=== PATIENT | male | born 1940 | race Caucasian/White ===

== ENCOUNTER → 2023-07-20 09:24 | Outpatient (REF) | payer MEDICARE, OTHER, SELFPAY ==
[2023-07-20 13:58] LABS: ALT (SGPT) 41 U/L (0-50); AST (SGOT) 35 U/L (17-59); Albumin 3.7 g/dl (3.5-5.0); Alkaline Phosphatase 75 U/L (38-126); Blood Urea Nitrogen 34 mg/dl (9-20); Calcium 9.1 mg/dl (8.4-10.2); Carbon Dioxide 34 mmol/L (22-30); Chloride 101 mmol/L (98-107); Glucose 97 mg/dl (70-99); HDL Cholesterol 43 mg/dl; LDL Cholesterol, Calculated 88 mg/dl; Sodium 140 mmol/L (135-145); Total Bilirubin 2.3 mg/dl (0.2-1.3); Total Cholesterol 145 mg/dl (50-199); Total Protein 6.7 g/dl (6.3-8.2); Triglyceride 71 mg/dl (10-149); Very Low Density Lipoprotein 14 mg/dl (0-30); eGFR 39.75
== END ==
LOC: HWLAB 09:24
PROVIDERS: ATTENDING PHYSICIAN Internal Medicine; REFERRING PHYSICIAN Internal Medicine
DX: R73.03 Prediabetes (principal); I10 Essential (primary) hypertension; I25.5 Ischemic cardiomyopathy; E78.5 Hyperlipidemia, unspecified; Z79.01 Long term (current) use of anticoagulants
CPT/HCPCS: 36415; 80053; 80061; 83036; 84443

== ENCOUNTER → 2023-10-08 06:18 | Day surgery (SDC) | payer MEDICARE, OTHER, SELFPAY ==
[2023-10-08 06:19] VITALS: BP 139/73
[2023-10-08] MEDS: ALCAINE 0.5% EYE DROPS 1 DROP OPHTH (06:28)
[2023-10-08] MEDS: MYDRIACYL 1 DROP OPHTH (06:29)
[2023-10-08] MEDS: NEO-SYNEPHRINE 2.5% OPH SOL. 1 DROP OPHTH (06:29)
[2023-10-08] MEDS: PRED FORTE 1% EYE DROPS 1 DROP OPHTH (06:29)
[2023-10-08] MEDS: POLYTRIM OPHTHALMIC SOLUTION 1 DROP OPHTH (06:29)
[2023-10-08] MEDS: ACUVAIL 10 DROPS OPHTH (06:29)
[2023-10-08] MEDS: CYCLOGYL 1% EYE DROPS 1 DROP OPHTH (06:29)
[2023-10-08] MEDS: NORMOSOL-R 1000 IV (06:46)
[2023-10-08] MEDS: AKTEN OPHTHALMIC GEL 1 ML OPHTH (07:14)
[2023-10-08 07:50] VITALS: BP 119/67
[2023-10-08 08:04] VITALS: BP 128/64
[2023-10-08 08:05] VITALS: BP 128/64
[2023-10-08 08:11] VITALS: BP 129/63
== END ==
LOC: SDS 06:18
PROVIDERS: ATTENDING PHYSICIAN Ophthalmology
DX: H25.12 Age-related nuclear cataract, left eye (principal)
CPT/HCPCS: 66984; V2632

== ENCOUNTER 2023-10-27 10:57 | Emergency (ER) | payer MEDICARE, OTHER, SELFPAY ==
[2023-10-27] VITALS (7 sets, daily range): BP systolic 110–150; BP diastolic 63–84
--- NOTE | 2023-10-27 11:56 | ED.GENMED ---
History of Present Illness
General
Chief Complaint: Swelling
Source: patient and spouse
Time Seen by Provider: 10/27/23 11:29
Travel History
Have you had any contact with someone who has COVID-19?: No
Do you have any symptoms of coronavirus? Fever > 100 degrees, chills, cough, shortness of breath, sore throat, loss of taste or smell, muscle aches, or headache?: No
History of Present Illness
History of Present Illness:
83-year-old male brought to the emergency room by his for evaluation of acute swelling, fatigue increased shortness of breath. Patient does have a history of congestive heart failure. He is followed by Dr. Li. Patient has been compliant
with his medications. He denies chest pain. No recent fever.
Past History
Past History
ED Past Medical History: Arrthythmia (Atrial fibrillation, sick sinus syndrome, ventricular dysrhythmia), CAD, CHF, CVA (Hemorrhagic stroke), HTN, Hypercholesterolemia, Hypothyroidism and Other (Pneumonia, hemorrhagic stroke, coronary artery
disease,)
ED Past Surgical History: Cardiac (Dual chamber Pacemaker/AICD) and Cholecystectomy
Social History
Tobacco: Non-smoker
Alcohol: None
Personal:
Living: with family
Employment: Retired
Family History
Family History: Other (Noncontributory)
Phy Exam
Physical Exam
Physical Exam:
General: Awake, Alert, Oriented X3. No acute distress., Appears chronically ill, pale complexion
Vitals: unremarkable
Head: Atraumatic
Eyes: Pupils equal, EOMI
Throat: Airway intact, no exudates
Neck: Trachea midline
Lungs: Clear and equal b/l
Heart: Regular rate, no murmurs
Abd: Soft, Nontender, No pulsatile mass
Neuro: Nonfocal
Skin: Warm, dry, no rash
Extremities: pulses equal b/l, 2+ edema
Scores
Heart Failure Risk
Heart Failure Risk Score: Yes
History of Stroke or TIA: Yes
History of intubation for respiratory distress: No
Heart rate on ED arrival >/= 110: No
SaO2 <90% on arrival on room air: No
HR >/=110 during 3min walk test (or too ill to perform test): No
ECG has acute ischemic changes: No
Urea >/=12mmol/L (BUN 33.6mg/dL): No
Serum CO2>/=35mmol/L: No
Troponin I or T elevated to MT Level (0.4mg/dL): No
NT-proBNP >/=5,000ng/L (5,000pg/ml): No
HF Risk Score: 1
Admission Status: MEDIUM RISK 5.1% Consider observation or discharge to home with homecare & f/u visit to PCP/Senior Data Architect, or SNF for treatment
Course
Orders/Labs/Results
Orders:
Orders
10/27/23 11:56
Electrocardiogram (*1) Stat
Reason for Study: Other
Other Reason for Exam: chest pain
Cardiac Monitoring- Treatment ONCE
EKG- Treatment ONCE
CR Chest - 2 Views Urgent
Comment:
Reason For Exam: edema, sob
10/27/23 12:05
Basic Metabolic Panel Urgent
Complete Blood Count/With Diff Urgent
Magnesium Urgent
NT-proBNP Urgent
Troponin I Urgent
10/27/23 12:55
Urinalysis Reflex To Culture Urgent
Date Specimen was Collected: 10/27/23
Time Specimen was Collected: 12:54
10/27/23 14:33
Furosemide [Lasix] 80 mg IV NOW STA
Abnormal Lab Results
10/27/23
12:05
RBC 3.98 L 10^6/uL
(4.70-6.10)
Hgb 12.6 L g/dL
(13.0-18.0)
Hct 37.7 L %
(39.0-52.0)
MCV 94.7 H fL
(80.0-94.0)
MCH 31.7 H pg
(27.0-31.0)
Monocytes % 10.9 H %
(1.7-9.3)
BUN 28 H mg/dl
(9-20)
Creatinine 1.8 H mg/dL
(0.7-1.3)
Magnesium 2.5 H mg/dl
(1.6-2.3)
10/27/23 12:05
10/27/23 12:05
Vital Signs
Initial and Last Documented VS:
Initial Vital Signs
Temp Pulse Resp BP Pulse Ox
98.0 F 51 16 124/71 98
10/27/23 11:12 10/27/23 11:12 10/27/23 11:12 10/27/23 11:12 10/27/23 11:12
Last Documented Vital Signs
Temp Pulse Resp BP Pulse Ox
97.8 F 46 12 134/84 96
10/27/23 15:00 10/27/23 16:15 10/27/23 16:15 10/27/23 16:00 10/27/23 16:15
MDM/Problems Addressed
Differential Diagnosis Includes:
CHF, renal failure, hypokalemia, UTI
MDM/Problems Addressed:
Patient presents with increased edema and generalized weakness. Labs here show normal white count, essentially normal hemoglobin, renal function which is at baseline for him. Physical exam patient seems a bit fluid overloaded. Will give him a
dose of IV Lasix but he seems stable for discharge.
Chronic conditions affecting care: HTN and Other (chf)
*Radiology
Radiology exam reviewed: radiology read reviewed
*Pulse Oximetry
Patient hypoxic: no
*EKG
Interpretation: abnormal
Heart Rate: 50
Rhythm: ventricular paced
Ischemia: no ischemia
*Hose Inspector And Patcher Interpretation
Rate: bradycardiac
Heart Rate: 50
Rhythm: ventricular paced
*Critical Care Note
Total Time (30-74mins, 75-104mins- exclusive of procedures): Not Applicable
ED Attending Note
-
Portions of this chart may have been created with voice recognition software.� Occasional wrong word or��sound alike� substitutions may have occurred due to the inherent limitations of voice recognition software.
Discharge Plan
Departure
Patient Disposition: Home (Routine Discharge)
Date of Disposition: 10/27/23
Time of Disposition: 14:42
Patient with high blood pressure during this ER visit?: No
Condition: Good
Discharge Problem:
CHF (congestive heart failure)
Instructions: *CBC Heart Failure Instructions
Prescriptions:
No Action
levothyroxine 75 MCG tablet
75 mcg PO DAILY
atorvastatin 40 MG tablet
40 mg PO DAILY
cyanocobalamin (vitamin B-12) 1,000 MCG tablet
1,000 mcg PO DAILY
Patient Comments:
being held for surgery on 10/28
lisinopril 40 MG tablet
40 mg PO DAILY
cholecalciferol (vitamin D3) 1,000 UNITS tablet
1,000 units PO DAILY
Patient Comments:
being held for surgery 10/28
Eliquis 5 MG tablet
2.5 mg PO BID@0800,1800
isosorbide mononitrate 60 MG tablet extended release 24 hr
60 mg PO DAILY Qty: 30 0RF
carvedilol 12.5 MG tablet
25 mg PO BID@0800,1800
potassium chloride 10 MEQ tablet,ER particles/crystals
20 meq PO BID
amiodarone 200 mg Tablet
200 mg PO DAILY
furosemide 40 mg Tablet
40 mg PO DAILY
Rx Instructions:
1600
furosemide 80 MG tablet
80 mg PO DAILY
Rx Instructions:
0800
Referrals:
Naveen Li MD [Active] -
Luiza Campbell MD [Family Provider] -
Interventions
Interventions:
*Risk Screen - Suicide Last Done: 10/27/23 11:45
*General Assessment Last Done: 10/27/23 11:45
*Neglect/Abuse Screening Last Done: 10/27/23 11:45
ED- Fall Risk Assessment Last Done: 10/27/23 13:09
*ED COVID-19 Vaccine History Last Done: 10/27/23 11:12
*Nursing Disposition Last Done: 10/27/23 16:55
ED- Cardiac Assessment Last Done: 10/27/23 11:47
ED- Pulmonary Assessment Last Done: 10/27/23 16:51
ED-Skin Assessment Last Done: 10/27/23 16:51
Discharge Date and Time
Discharge Date/Time: 10/27/23 16:56
Print Language: PASHTO
[2023-10-27 12:34] LABS: % Basophils 1.3 % (0-2); % Eosinophils 2.9 % (0-6); % Immature Granulocytes 0.4 % (0-0.5); % Lymphocytes 23.1 % (20.5-51.1); % Monocytes 10.9 % (1.7-9.3); % Neutrophils 61.4 % (42.2-75.2); Absolute Basophils 0.1 10^3/uL (0-0.2); Absolute Eosinophils 0.2 10^3/uL (0-0.7); Absolute Lymphocytes 1.2 10^3/uL (1.2-3.4); Absolute Monocytes 0.6 10^3/uL (0.1-0.6); Absolute Neutrophils 3.2 10^3/uL (1.4-6.5); Hematocrit 37.7 % (39.0-52.0); Hemoglobin 12.6 g/dL (13.0-18.0); Mean Corp Hgb Conc. 33.4 g/dL (33.0-37.0); Mean Corpuscular Hgb 31.7 pg (27.0-31.0); Mean Corpuscular Volume 94.7 fL (80.0-94.0); Mean Platelet Volume 10.2 fL (7.4-10.4); Nucleated Red Blood Cells % 0 % (-); Platelet Count 146 10^3/uL (130-400); Red Blood Cell Count 3.98 10^6/uL (4.70-6.10); Red Cell Dist. Width 13.6 % (11.5-14.5); White Blood Cell Count 5.2 10^3/uL (4.8-10.8)
[2023-10-27 12:38] LABS: Blood Urea Nitrogen 28 mg/dl (9-20); Carbon Dioxide 30 mmol/L (22-30); Chloride 103 mmol/L (98-107); Estimated Creatinine Clearance 35 ml/min; Glucose 90 mg/dl (70-99); Magnesium 2.5 mg/dl (1.6-2.3); Potassium 4.1 mmol/L (3.5-5.1); Sodium 140 mmol/L (135-145); eGFR 36.89
[2023-10-27 12:50] LABS: Troponin I 0.026 ng/ml
[2023-10-27 13:08] LABS: Urine Albumin Negative (Neg - Trace); Urine Bilirubin Negative (Negative); Urine Character Clear (Clear); Urine Color Yellow; Urine Glucose Negative (Negative); Urine Ketone Negative (Negative); Urine Leukocyte Negative (Negative); Urine Nitrite Negative (Negative); Urine Occult Blood Negative (Negative); Urine Urobilinogen Negative (Neg - 1+)
[2023-10-27 14:31] LABS: NT-proBNP 1950 pg/ml
[2023-10-27] MEDS: LASIX 80 MG IV (14:46)
== END 2023-10-27 16:56 | disposition home or self-care (01) ==
LOC: EMR 10:57
PROVIDERS: EMERGENCY PHYSICIAN Emergency Medicine; FAMILY PHYSICIAN Internal Medicine; REFERRING PHYSICIAN Internal Medicine
DX: I50.9 Heart failure, unspecified (principal); R53.1 Weakness; R53.83 Other fatigue; R06.02 Shortness of breath; R60.0 Localized edema; I48.91 Unspecified atrial fibrillation; I49.5 Sick sinus syndrome; E03.9 Hypothyroidism, unspecified; E78.00 Pure hypercholesterolemia, unspecified; I11.0 Hypertensive heart disease with heart failure; I25.10 Atherosclerotic heart disease of native coronary artery without angina pectoris; Z95.810 Presence of automatic (implantable) cardiac defibrillator; Z86.73 Personal history of transient ischemic attack (TIA), and cerebral infarction without residual deficits; Z87.01 Personal history of pneumonia (recurrent); Z90.49 Acquired absence of other specified parts of digestive tract; Z88.2 Allergy status to sulfonamides; Z88.8 Allergy status to other drugs, medicaments and biological substances
CPT/HCPCS: 99285; 96374; 93289; 71046; 80048; 81003; 83735; 83880; 84484; 85025; 93005

== ENCOUNTER 2023-10-29 06:23 | Day surgery (SDC) | payer MEDICARE, OTHER, SELFPAY ==
[2023-10-29 08:20] VITALS: BP 119/75
[2023-10-29] MEDS: ALCAINE 0.5% EYE DROPS 2 DROP OPHTH (08:43)
[2023-10-29] MEDS: PRED FORTE 1% EYE DROPS 1 DROP OPHTH (08:43)
[2023-10-29] MEDS: NEO-SYNEPHRINE 2.5% OPH SOL. 1 DROP OPHTH (08:44)
[2023-10-29] MEDS: POLYTRIM OPHTHALMIC SOLUTION 1 DROP OPHTH (08:44)
[2023-10-29] MEDS: MYDRIACYL 1 DROP OPHTH (08:44)
[2023-10-29] MEDS: CYCLOGYL 1% EYE DROPS 1 DROP OPHTH (08:45)
[2023-10-29] MEDS: ACUVAIL 1 DROPS OPHTH (08:45)
[2023-10-29] MEDS: NORMOSOL-R 1000 IV (08:46)
[2023-10-29] MEDS: AKTEN OPHTHALMIC GEL 1 ML OPHTH (09:38)
[2023-10-29 10:22] VITALS: BP 156/69
[2023-10-29 10:30] VITALS: BP 136/66
[2023-10-29 10:38] VITALS: BP 148/72
== END 2023-10-29 10:50 | disposition home or self-care (01) ==
LOC: SDS 06:23
PROVIDERS: ATTENDING PHYSICIAN Ophthalmology
DX: H25.11 Age-related nuclear cataract, right eye (principal)
CPT/HCPCS: 66984

== ENCOUNTER → 2023-11-12 09:30 | Outpatient (REF) | payer MEDICARE, OTHER, SELFPAY ==
[2023-11-12 12:40] LABS: ALT (SGPT) 29 U/L (0-50); AST (SGOT) 28 U/L (17-59); Albumin 4.2 g/dl (3.5-5.0); Alkaline Phosphatase 73 U/L (38-126); Blood Urea Nitrogen 28 mg/dl (9-20); Calcium 9.1 mg/dl (8.4-10.2); Carbon Dioxide 30 mmol/L (22-30); Chloride 105 mmol/L (98-107); Glucose 92 mg/dl (70-99); HDL Cholesterol 38 mg/dl; LDL Cholesterol, Calculated 77 mg/dl; Potassium 3.7 mmol/L (3.5-5.1); Sodium 144 mmol/L (135-145); Total Bilirubin 2.4 mg/dl (0.2-1.3); Total Cholesterol 130 mg/dl (50-199); Total Protein 6.8 g/dl (6.3-8.2); Triglyceride 77 mg/dl (10-149); Very Low Density Lipoprotein 15 mg/dl (0-30); eGFR 39.51
[2023-11-12 13:02] LABS: TSH Reflex To Free T4 3.51 uIU/ml (0.47-4.68)
[2023-11-12 13:31] LABS: Glycohemoglobin (HgbA1c) 5.8 % (4.0-5.6)
== END ==
LOC: HWLAB 09:30
PROVIDERS: ATTENDING PHYSICIAN Internal Medicine
DX: N18.2 Chronic kidney disease, stage 2 (mild) (principal); E03.9 Hypothyroidism, unspecified; R73.03 Prediabetes; I69.30 Unspecified sequelae of cerebral infarction
CPT/HCPCS: 36415; 80053; 80061; 83036; 84443

== ENCOUNTER → 2024-01-09 14:06 | Outpatient (REF) | payer MEDICARE, OTHER, SELFPAY | LOC: HWRAD 14:06 | PROVIDERS: ATTENDING PHYSICIAN Internal Medicine | DX: R26.9 Unspecified abnormalities of gait and mobility (principal) | CPT/HCPCS: 73502 ==

== ENCOUNTER 2024-01-16 14:03 | Outpatient (RCR) | payer MEDICARE, OTHER, SELFPAY | END 2024-01-16 23:59 | disposition home or self-care (01) | LOC: RPT 14:03 | PROVIDERS: ATTENDING PHYSICIAN Internal Medicine | DX: R26.81 Unsteadiness on feet (principal); Z73.6 Limitation of activities due to disability; R29.6 Repeated falls | CPT/HCPCS: 97110; 97112; 97162; 97530 ==

== ENCOUNTER 2024-02-18 11:50 | Outpatient (RCR) | payer MEDICARE, OTHER, SELFPAY | END 2024-02-18 23:59 | disposition home or self-care (01) | LOC: RPT 11:50 | PROVIDERS: ATTENDING PHYSICIAN Internal Medicine | DX: R26.81 Unsteadiness on feet (principal); R29.6 Repeated falls | CPT/HCPCS: 97110; 97112; 97116; 97530 ==

== ENCOUNTER 2024-03-03 14:53 | Outpatient (RCR) | payer MEDICARE, OTHER, SELFPAY | END 2024-03-10 14:53 | disposition home or self-care (01) | LOC: RPT 14:53 | PROVIDERS: ATTENDING PHYSICIAN Internal Medicine | DX: R26.81 Unsteadiness on feet (principal); Z73.6 Limitation of activities due to disability; R26.2 Difficulty in walking, not elsewhere classified; M62.81 Muscle weakness (generalized); R29.6 Repeated falls | CPT/HCPCS: 97110; 97112; 97116; 97530 ==

== ENCOUNTER 2024-03-10 11:02 | Inpatient (IN) | payer MEDICARE, OTHER, SELFPAY ==
[2024-03-07] VITALS (12 sets, daily range): BP systolic 119–160; BP diastolic 52–97; PULSE 60; O2SAT 93; BMI 29.8
--- NOTE | 2024-03-07 08:18 | ED.GENMED ---
History of Present Illness
General
Chief Complaint: Fall
Source: patient, family and ambulance crew
Exam Limitations: none
Time Seen by Provider: 03/07/24 08:04
Nursing documentation reviewed up to this point in time: agreed with
History of Present Illness
History of Present Illness:
83-year-old male with a past medical history of 'cognitive decline,' prior hemorrhagic stroke status post craniotomy, sleep apnea, CHF, atrial fibrillation on Eliquis, hypothyroidism who presents to the emergency room from home where he lives with
his ; who presents via EMS for evaluation of generalized weakness and confusion, fall today. Patient is very limited as a historian�when asked what is wrong he says 'my is on the way, you can ask her.' He denies any specific pains
although according to EMS he was complaining of some right hip pain to them. Per EMS report patient has had increasing weakness over the past few days culminating in a fall onto his bottom today. Apparently there was no head strike reported. He
is on Eliquis. is en route to the hospital. EMS reports that felt patient was much weaker and slightly more confused than usual.
UPDATE
Patient's is now at bedside: She lives at home with the patient, patient ambulates with a walker. He has baseline cognitive issues since hemorrhagic stroke and has had gradual decline over the past few years. Recently has been dealing with
right hip pain related to arthritis over the past few weeks; has not yet seen a specialist for this. Has had x-ray as an outpatient apparently that was positive for arthritis but negative for fracture. Yesterday patient's noticed that he had
'a bad cold'�she describes runny nose and hacking cough. This morning at around 4 AM patient woke up to go to the bathroom and was very weak and had a minor fall down to his bottom. EMS was called to help him up and they got him to the bathroom
and back into bed. Then at around 7 AM patient again got up to go to the bathroom and could not make it to the bathroom with a walker and once again fell down towards his bottom. There was no head trauma during either fall. EMS was called a
second time and patient was brought into the emergency room. He has been slightly more confused over the past 24 hours according to but does have significant baseline cognitive dysfunction.
Past History
Past History
ED Past Medical History: Arrthythmia (Atrial fibrillation, sick sinus syndrome, ventricular dysrhythmia), CAD, CHF, CVA (Hemorrhagic stroke), HTN, Hypercholesterolemia, Hypothyroidism and Other (Pneumonia, hemorrhagic stroke, coronary artery
disease,)
ED Past Surgical History: Cardiac (Dual chamber Pacemaker/AICD) and Cholecystectomy
Social History
Tobacco: Non-smoker
Alcohol: None
Personal:
Living: with family
Employment: Retired
Family History
Family History: Other (Noncontributory)
Review of Systems
Review of Systems
Unable to obtain full review of systems at this time due to: dementia
All Other Systems: Not applicable
Phy Exam
Physical Exam
Physical Exam:
General: Awake, alert, oriented x2; no acute distress
Head: Normocephalic, atraumatic
Eyes: Conjunctiva normal, pupils equal round and reactive to light bilaterally
Throat: Airway intact, handling secretions
Neck: Trachea midline, no midline cervical spine tenderness, scar in the cervical region from prior surgery
Back: No tenderness in the thoracic or lumbar spine, no signs of trauma to the back or flank
Lungs: Patient has mild tachypnea, pulse ox low normal 91% on room air, no increased work of breathing; he has scattered expiratory wheezing and coughing throughout exam
Heart: Regular rate and rhythm, no murmurs, gallops, or rubs appreciated; left upper chest wall AICD; no rib tenderness
Abd: Soft, non distended, nontender
Neuro: Patient has some right lid ptosis, cranial nerves otherwise intact; speech fluid no dysarthria, motor and sensory function intact in all extremities
Skin: no rash
Extremities: Atraumatic, no reproducible tenderness, moves both upper and lower extremities through full active range of motion without pain, no edema in extremities, equal pulses in all extremities
Scores
Heart Failure Risk
Heart Failure Risk Score: Not Applicable
Heart Score for Chest Pain Patients
STEMI patient?: Not applicable
Withdrawal Assessment of Alcohol
Withdrawal Assessment Completed?: Not applicable
Course
Orders/Labs/Results
Orders:
Orders
03/07/24 08:05
Electrocardiogram (*1) Urgent
Reason for Study: Fatigue / Weakness
EKG- Treatment ONCE
CR Hip - RT w/wo Pel 2-3 Vw* Urgent
Comment:
Reason For Exam: right hip pain s/p fall
Include a pelvis x-ray?: Yes
03/07/24 08:17
CT Head W/o Iv Contrast Urgent
Comment:
Reason For Exam: confused s/p fall
03/07/24 08:22
Interrogate Pacemaker- Treatment ONCE
COVID-19 Antigen Urgent
Source: Nasal Swab
Complete Blood Count/With Diff Urgent
Comprehensive Metabolic Panel Urgent
Lipase Urgent
Urinalysis Reflex To Culture Urgent
Date Specimen was Collected: 03/07/24
Time Specimen was Collected: 08:15
Influenza A+B Rapid Molecular Urgent
[place] Source: Nasal Swab
Specimen Description:
03/07/24 08:37
CR Chest - 2 Views Urgent
Comment:
Reason For Exam: cough, weakness
03/07/24 09:32
Case Management Consult ONCE
Case Management Consult: Long Term Placement
Pt Eval And Treat Urgent
Activity Level: With Assistance
03/07/24 09:36
Ipratropium/Albuterol Sulfate [Duoneb] 3 ml INH R NOW STA
03/07/24 10:27
Acetaminophen [Tylenol] 1,000 mg .ROUTE .STK-MED ONE
03/07/24 10:29
Acetaminophen [Tylenol] 1,000 mg PO NOW STA
03/07/24 10:32
Amiodarone [Pacerone] 200 mg PO NOW STA
Carvedilol [Coreg] 25 mg PO NOW STA
Furosemide [Lasix] 40 mg PO NOW STA
Levothyroxine [Synthroid] 75 mcg PO NOW STA
Lisinopril [Zestril] 40 mg PO NOW STA
03/07/24 10:33
Apixaban [Eliquis] 2.5 mg PO ONCE ONE
Abnormal Lab Results
03/07/24
08:22
RBC 4.44 L 10^6/uL
(4.70-6.10)
MCHC 32.9 L g/dL
(33.0-37.0)
Absolute Lymphs (auto) 0.9 L 10^3/uL
(1.2-3.4)
Absolute Monos (auto) 0.7 H 10^3/uL
(0.1-0.6)
Neutrophils % 77.4 H %
(42.2-75.2)
Lymphocytes % 12.0 L %
(20.5-51.1)
Monocytes % 9.4 H %
(1.7-9.3)
Carbon Dioxide 31 H mmol/L
(22-30)
BUN 31 H mg/dl
(9-20)
Creatinine 1.8 H mg/dL
(0.7-1.3)
Glucose 101 H mg/dl
(70-99)
Total Bilirubin 4.1 H mg/dl
(0.2-1.3)
SARS-CoV-2 Antigen Positive A
(Negative)
03/07/24 08:22
03/07/24 08:22
Vital Signs
Initial and Last Documented VS:
Initial Vital Signs
Temp Pulse Resp BP Pulse Ox
37.0 C 89 18 134/70 95
03/07/24 08:06 03/07/24 08:06 03/07/24 08:06 03/07/24 08:06 03/07/24 08:06
Last Documented Vital Signs
Temp Pulse Resp BP Pulse Ox
37.7 C 59 14 159/87 90
03/07/24 10:24 03/07/24 10:00 03/07/24 10:00 03/07/24 10:00 03/07/24 10:00
MDM/Problems Addressed
Differential Diagnosis Includes:
Anemia, electrolyte derangement, infection including UTI or pneumonia, viral syndrome, dehydration, traumatic head injury, stroke
MDM/Problems Addressed:
83-year-old male presents to the emergency room for evaluation of increasing weakness and confusion over the past few days culminating in a minor fall today. He is on Eliquis. Vitals and exam as above. Somewhat limited as a historian but
patient's is on the way to the hospital and will speak with her for collateral history. Will place an IV send labs including a CBC and a CMP, swab for COVID and flu. Will check EKG and interrogate device. Check CT head. Will check chest
x-ray. He denies hip pain and allows range of motion of the right hip without apparent pain but was complaining of hip pain for EMS and apparently did fall onto his bottom�will check x-ray of the hip and pelvis. Will monitor closely reassess after
the above.
CT head reviewed by me�encephalomalacia and prior craniotomy but no acute abnormalities noted, awaiting radiology read. Initial labs reviewed: CBC shows no clinically significant abnormalities, CMP shows chronic kidney disease but creatinine is at
baseline. Chronically elevated T. bili but otherwise normal LFTs. Urinalysis negative for infection. Patient is positive for COVID which I suspect is the etiology of his symptoms. Awaiting results of chest x-ray as well as hip x-ray. Will give
a DuoNeb for mild wheezing and cough�suspect bronchitis from viral infection.
Device was interrogated, discussed with [employer] rep: Patient has been in sinus rhythm, has occasional low rates which is allowed by pacing parameters but no arrhythmias. Patient is in paced rhythm about 42% of the time otherwise is in sinus
rhythm. Battery and lead function appropriate.
Chest x-ray reviewed by me shows no pneumonia. X-ray of the hip shows no fracture. I had a long discussion with the patient's �currently lives alone with his and ambulates with a walker. He had 2 falls today and his is very
concerned about his functional status in the setting of this COVID infection especially with already tenuous ambulatory function due to right hip pain from arthritis. From a purely infectious standpoint patient likely does not need to be
admitted�she has no signs of sepsis, respiratory rate and pulse ox are reasonable on room air�currently pulse ox is 95% on room air and respiratory rate is 18-20. He has no signs of pneumonia on his chest x-ray likely has mild bronchitis but
minimal wheezing. Treatment with Paxlovid was considered but patient has multiple important cardiac medications which would interact with Paxlovid; in my judgment risk of discontinuing his normal medications in order to administer Paxlovid would
outweigh benefit from treatment with Paxlovid in a vaccinated patient with a stable respiratory status. I am concerned about his functional status however, had long discussion with the , we will plan to have PT and case management evaluate to
see if patient could be placed in longterm/rehab out of the emergency room. If he is unable to be placed will admit to the hospital pending placement as with his current level of function he is high risk for repeated falls.
Chronic conditions affecting care:
History of A-fib on Eliquis complicates fall
*Radiology
Radiology exam reviewed: radiology read reviewed
*Pulse Oximetry
Patient hypoxic: no
*EKG
Interpreted by ED Provider?: Yes
Heart Rate: 59
Rate: bradycardiac
Rhythm: sinus and ventricular paced (Occasional ventricular paced complexes)
Interval: first degree heart block
QRS Pattern: left bundle branch block
Ischemia: non-specific ST changes
*Critical Care Note
Total Time (30-74mins, 75-104mins- exclusive of procedures): Not Applicable
Data Reviewed
Review of Other/Old Records Reveals: Labs and Records
Source: patient, records, family and ambulance crew
Patient Management
Social determinants of health affecting care: Living situation
Discussion with other providers: Hospitalist (Discussed with hospitalist) and Other (Discussed with case management)
Escalation/DeEscalation of care consider admission/obs:
Admission indicated
ED Attending Note
-
Portions of this chart may have been created with voice recognition software.� Occasional wrong word or��sound alike� substitutions may have occurred due to the inherent limitations of voice recognition software.
Discharge Plan
Departure
Patient Disposition: Admit
Date of Disposition: 03/07/24
Time of Disposition: 10:36
Admit to doctor: Quinn
Presentation/result/management discussed w/ accepting MD/DO: Hospitalist
Discharge Problem:
COVID-19, Bronchitis, Ambulatory dysfunction
Prescriptions:
No Action
levothyroxine 75 MCG tablet
75 mcg PO DAILY
atorvastatin 40 MG tablet
40 mg PO QPM
cyanocobalamin (vitamin B-12) 1,000 MCG tablet
1,000 mcg PO DAILY
lisinopril 40 MG tablet
40 mg PO DAILY
cholecalciferol (vitamin D3) 1,000 UNITS tablet
1,000 units PO DAILY
carvedilol 12.5 MG tablet
25 mg PO BID
potassium chloride 10 MEQ tablet,ER particles/crystals
20 meq PO QPM
amiodarone 200 mg Tablet
200 mg PO DAILY
furosemide 40 mg Tablet
40 mg PO QPM
Rx Instructions:
1600
furosemide 80 MG tablet
80 mg PO DAILY
Rx Instructions:
0800
acetaminophen [Tylenol] 325 mg Tablet
325 mg PO BIDPRN PRN (Reason: mild pain)
potassium chloride 10 mEq Tablet Extended Release
10 meq PO QPM
isosorbide mononitrate 60 MG tablet extended release 24 hr
60 mg PO QPM
Eliquis 2.5 mg Tablet
2.5 mg PO BID
Referrals:
UNKNOWN - PT DOES,NOT KNOW [Unknown Provider] -
Interventions
Interventions:
*Risk Screen - Suicide Last Done: 03/07/24 08:06
*General Assessment Last Done: 03/07/24 08:06
*Neglect/Abuse Screening Last Done: 03/07/24 08:06
ED-Musculoskeletal Assessment Last Done: 03/07/24 08:36
ED- Neurological Assessment Last Done: 03/07/24 08:36
ED-Skin Assessment Last Done: 03/07/24 08:36
Discharge Date and Time
Print Language: SCOTTISH
[2024-03-07 08:29] LABS: % Basophils 0.5 % (0-2); % Eosinophils 0.3 % (0-6); % Immature Granulocytes 0.4 % (0-0.5); % Monocytes 9.4 % (1.7-9.3); % Neutrophils 77.4 % (42.2-75.2); Absolute Lymphocytes 0.9 10^3/uL (1.2-3.4); Absolute Monocytes 0.7 10^3/uL (0.1-0.6); Absolute Neutrophils 5.7 10^3/uL (1.4-6.5); Hematocrit 41.7 % (39.0-52.0); Hemoglobin 13.7 g/dL (13.0-18.0); Mean Corp Hgb Conc. 32.9 g/dL (33.0-37.0); Mean Corpuscular Hgb 30.9 pg (27.0-31.0); Mean Corpuscular Volume 93.9 fL (80.0-94.0); Mean Platelet Volume 9.7 fL (7.4-10.4); Nucleated Red Blood Cells % 0 % (-); Platelet Count 130 10^3/uL (130-400); Red Blood Cell Count 4.44 10^6/uL (4.70-6.10); Red Cell Dist. Width 13.9 % (11.5-14.5); White Blood Cell Count 7.4 10^3/uL (4.8-10.8)
[2024-03-07 08:43] LABS: Urine Albumin Trace (Neg - Trace); Urine Bilirubin Negative (Negative); Urine Character Clear (Clear); Urine Color Yellow; Urine Glucose Negative (Negative); Urine Ketone Negative (Negative); Urine Leukocyte Negative (Negative); Urine Nitrite Negative (Negative); Urine Occult Blood Negative (Negative); Urine Specific Gravity 1.015 (<1.030); Urine Urobilinogen Negative (Neg - 1+)
[2024-03-07 08:51] LABS: ALT (SGPT) 34 U/L (0-50); AST (SGOT) 31 U/L (17-59); Albumin 4.3 g/dl (3.5-5.0); Alkaline Phosphatase 62 U/L (38-126); Blood Urea Nitrogen 31 mg/dl (9-20); COVID-19 Antigen Positive (Negative); Calcium 9.3 mg/dl (8.4-10.2); Carbon Dioxide 31 mmol/L (22-30); Chloride 105 mmol/L (98-107); Estimated Creatinine Clearance 35 ml/min; Glucose 101 mg/dl (70-99); Lipase 148 U/L (23-300); Potassium 3.8 mmol/L (3.5-5.1); Sodium 145 mmol/L (135-145); Total Bilirubin 4.1 mg/dl (0.2-1.3); Total Protein 6.8 g/dl (6.3-8.2); eGFR 36.89
[2024-03-07] MEDS: DUONEB 3 ML INH (09:43)
[2024-03-07] MEDS: TYLENOL 1000 MG PO (10:30)
--- NOTE | 2024-03-07 10:47 | CM ---
CM reviewed medical records. Patient is Medicare. CM confirmed that patient would be eligible for the [facility] [employer] program. CM updated ED MD.
[2024-03-07] MEDS: LASIX 40 MG PO ×2 (11:33→17:04)
[2024-03-07] MEDS: SYNTHROID 75 MCG PO (11:33)
[2024-03-07] MEDS: ZESTRIL 40 MG PO (11:34)
[2024-03-07] MEDS: COREG 25 MG PO (11:34)
[2024-03-07] MEDS: PACERONE 200 MG PO (11:35)
[2024-03-07] MEDS: ELIQUIS 2.5 MG PO ×2 (11:36→20:30)
--- NOTE | 2024-03-07 12:24 | CM ---
Addendum entered by Carmela Butler RN 03/07/24 15:56:
[facility] called and stated they cannot accept.
Addendum entered by Carmela Butler RN 03/07/24 13:39:
CM provided patient with OBS letter. Patient is agreeable to referrals to the following [facility] W[facility] facilities. Her first choice is [facility] due to proximity to her home.
Referrals sent to:
[facility]hab at [facility]
Original Note:
CM met with patient and in room. Patient lives with . stated that he has a history of placement at [facility] and had VN, but could not remember which agency. Patient does not have care in the home at this time. CM discussed
discharge planning options pending level of care determination by hospitalist team.
CM provided patient with [facility] participating SNF's. CM explained if patient is under OBS then the choice for SNF would be limited to that list. CM will updated with Level of Care determination to clarify discharge planning options.
--- NOTE | 2024-03-07 12:48 | HPS.HSE ---
Addendum entered and electronically signed by Jeremiah Amaral MD 03/07/24 15:31:
Patient with HR 40-50s, check EKG, likely secondary to COVID. Upgraded to tele.
Original Note:
Family Physician
-
Family Physician: Luiza Campbell
Chief Complaint
-
fall, weakness
History of Present Illness
83-year-old male past medical history of atrial fibrillation on Eliquis with ICD, sick sinus syndrome, CAD, CHF, hemorrhagic CVA, CKD, hypertension, hypercholesteremia, hypothyroidism, cognitive decline presenting from home for generalized weakness
and confusion. Patient is poor historian. He denies any specific complaints apart from right hip pain to EMS. Per EMS patient has had increasing weakness over the past few days noting a fall onto his bottom today. There is no head injury. As
per patient was more weak and confused than normal.
As per patient appears with a walker. He has baseline cognitive issues since hemorrhagic stroke and gradual decline over the past few years. He has recently been having right hip pain related to arthritis over the past 2 weeks. He had x-rays
and outpatient was positive for arthritis but negative for fracture.
Yesterday patient's noticed that he had a bad cold described as runny nose and hacking cough. This morning around 4 AM patient went to go to the bathroom and was very weak and had minor fall down to his bottom. EMS was called to help him up
and he got up to the bathroom and back into bed. Around 7 AM patient got up to go to the bathroom and could not make it to the bathroom. He again fell. EMS was called second time and he was brought to the emergency room.
He denies smoking or alcohol use.
Medical History
Past Medical History
Past Medical History: Reports Other (atrial fibrillation on Eliquis with ICD, sick sinus syndrome, CAD, CHF, hemorrhagic CVA, CKD, hypertension, hypercholesteremia, hypothyroidism, cognitive decline)
Past Surgical History: Reports Other (Cardiac (Dual chamber Pacemaker/AICD) and Cholecystectomy)
Social History
Tobacco: Non-smoker
Alcohol: None
Drug: None
Family History
Family History: Not pertinent
Allergies / Home Medications
Allergies reflects when Allergies were last updated in [facility].
Home Medications with original date entered in [facility]
Allergy/Medication List:
Allergies
Allergy/AdvReac Type Severity Reaction Status Date / Time
dipyridamole [From Aggrenox] Allergy Hives Verified 03/07/24 08:05
Sulfa (Sulfonamide Allergy Unknown Verified 03/07/24 08:05
Antibiotics)
Home Medications
levothyroxine 75 mcg tablet 75 mcg PO DAILY Thyroid 04/21/16
atorvastatin 40 mg tablet 40 mg PO QPM High cholesterol 10/17/19
cholecalciferol (vitamin D3) 25 mcg (1,000 unit) tablet 1,000 units PO DAILY Supplement 10/17/19
cyanocobalamin (vitamin B-12) 1,000 mcg tablet 1,000 mcg PO DAILY Supplement 10/17/19
lisinopril 40 mg tablet 40 mg PO DAILY Blood pressure 10/17/19
carvedilol 12.5 mg tablet 25 mg PO BID Blood pressure 09/22/20
potassium chloride 10 mEq tablet,extended release(part/cryst) 20 meq PO QPM Electrolyte Repletion 09/22/20
amiodarone 200 mg tablet 200 mg PO DAILY 08/04/22
furosemide 40 mg tablet 40 mg PO QPM 10/03/23
furosemide 80 mg tablet 80 mg PO DAILY Fluid retention/Swelling 10/23/23
acetaminophen 325 mg tablet (Tylenol) 325 mg PO BIDPRN PRN mild pain 03/07/24
apixaban 2.5 mg tablet (Eliquis) 2.5 mg PO BID 03/07/24
isosorbide mononitrate 60 mg tablet,extended release 24 hr 60 mg PO QPM 03/07/24
potassium chloride 10 mEq tablet,extended release 10 meq PO QPM 03/07/24
Review of Systems
-
History Source: Patient
A 12 point ROS was completed and negative except as noted: Yes
Constitutional: Reports No Symptoms
EENT: Reports No Symptoms
Respiratory: Reports See HPI
Cardiac: Reports No Symptoms
Abdomen/GI: Reports No Symptoms
: Reports No Symptoms
Musculoskeletal: Reports See HPI
Skin: Reports No Symptoms
Neurological: Reports No Symptoms
Endocrine: Reports No Symptoms
Hematologic/Lymphatic: Reports No Symptoms
Psych: Reports No Symptoms
Physical Exam
Vital Signs
Vital Signs
Temp Pulse Resp BP Pulse Ox
99.9 F 52 17 132/64 98
03/07/24 10:24 03/07/24 12:00 03/07/24 12:00 03/07/24 12:00 03/07/24 11:00
Physical Exam
General: Well Developed, Well Nourished and No Apparent Distress
HEENT: NormoCephalic, Moist mucous membranes and Atraumatic
Respiratory: Clear
Cardiac: S1/S2 and Regular Rhythm; No Murmur or Rub
GI: Soft, Non Tender, Non Distended and Normal Bowel Sounds; No Organomegaly
Rectal: Deferred by Provider
Musculoskeletal: No Clubbing, No Cyanosis and No Edema
Skin: No Rash
Neuro: Nonfocal/grossly intact
Laboratory Results
-
03/07/24 08:22
03/07/24 08:22
Laboratory Results
Total Bilirubin 4.1 mg/dl (0.2-1.3) H 03/07/24 08:22
AST 31 U/L (17-59) 03/07/24 08:22
ALT 34 U/L (0-50) 03/07/24 08:22
Alkaline Phosphatase 62 U/L (38-126) 03/07/24 08:22
Lipase 148 U/L (23-300) 03/07/24 08:22
Data Reviewed
-
Lab Data: Labs Reviewed by me
Old Records: Reviewed
Impression/Plan
-
IMPRESSION:
PLAN:
# COVID bronchitis associated ambulatory dysfunction
-COVID-positive
-Chest x-ray shows no evidence of pneumonia/pulm edema, mild cardiomegaly
-Not hypoxic
-Albuterol as needed
-PT/OT
Paroxysmal atrial fibrillation
-Continue amiodarone
-Continue Eliquis
History of sick sinus syndrome with ICD
CAD
-Continue statin
-Continue isosorbide mononitrate
Chronic HFrEF
-Continue Coreg
-Continue Lasix with potassium
Chronic kidney disease stage III
-Creatinine of 1.8 which has been stable
History of hemorrhagic CVA
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
Essential hypertension
-Continue lisinopril
Hypercholesterolemia
Hypothyroidism
-Continue levothyroxine
Full code
DVT prophylaxis�Eliquis
Regular diet
--- NOTE | 2024-03-07 15:15 | PTCARENOTE ---
03/07- Patient transferred and oriented to unit without issue. AAOX3 but lethargic; L-facial droop leftover from chronic CVA; Cyanotic nailbedsX4; Patient is hypoxic at 87% on RA but 93% on 2L at rest; HR=47. Notified Physician to apply
Telemetry. Stage I on Sacrum observed- cleansed, Silicone Foam applied. Will continue to monitor.
[2024-03-07] MEDS: IMDUR (EXTENDED RELEASE) 60 MG PO (17:03)
[2024-03-07] MEDS: LIPITOR 40 MG PO (17:03)
[2024-03-07] MEDS: KCL 10 MEQ PO (17:03)
[2024-03-07] MEDS: KCL 20 MEQ PO (17:03)
[2024-03-07] MEDS: COREG 12.5 MG PO (20:30)
[2024-03-08] VITALS (7 sets, daily range): BP systolic 109–156; BP diastolic 58–78; PULSE 60; O2SAT 97; BMI 29.5
--- NOTE | 2024-03-08 07:47 | W.PN.HOSP.TC ---
Today's Communication/Plan
-
PT/OT
wean O2 supplementation as tolerated
fall precautions
COVID precautions
Assessment / Plan
Assessment / Plan
Physical Exam
General: Well Developed, Well Nourished and No Apparent Distress
HEENT: NormoCephalic, Moist mucous membranes and Atraumatic
Respiratory: Clear
Cardiac: S1/S2 and Regular Rhythm; No Murmur or Rub
GI: Soft, Non Tender, Non Distended and Normal Bowel Sounds; No Organomegaly
Rectal: Deferred by Provider
Musculoskeletal: No Clubbing, No Cyanosis and No Edema
Skin: No Rash
Neuro: Nonfocal/grossly intact
83M atrial fibrillation Eliquis with ICD, sick sinus syndrome, CAD, CHF, hemorrhagic CVA, CKDIII, HTN, HLD, hypothyroidism, cognitive decline presented from home for progressive generalized weakness and confusion past few days, COVID+.
# COVID bronchitis associated ambulatory dysfunction
-COVID-positive
-Chest x-ray shows no evidence of pneumonia/pulm edema, mild cardiomegaly
-O2 supplementation as necessary for goal sat >=92%
-Albuterol as needed
-PT/OT appreciated SNF rehab
Paroxysmal atrial fibrillation
-Continue amiodarone
-Continue Eliquis
History of sick sinus syndrome with ICD
CAD
-Continue statin
-Continue isosorbide mononitrate
Chronic HFrEF
-Continue Coreg
-Continue Lasix with potassium
Mild acute on Chronic kidney disease stage III
-Initial Cr 1.8 trended down to 1.4
-baseline appears to be 1.4-1.5
History of hemorrhagic CVA
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
Essential hypertension
-Continue lisinopril
Hypercholesterolemia
Hypothyroidism
-Continue levothyroxine
Full code
DVT prophylaxis�Eliquis
Regular diet
discussed with patient and patient's Sandy
I spent a total of 35 minutes with the patient or on the floor. More than 50% of this time involved counseling and coordination of care.
Anticipated Discharge: 24 - 48 hours
Subjective/Interval History
-
Date of Service: March 08, 2024
Seen and examined at bedside, in no acute distress, sitting up comfortably in chair. AOx2 disoriented to time. Overall reports improvement in symptoms. Sandy present during evaluation.
Objective Data
-
Labs:
Laboratory Results
03/08/24
06:00
WBC Pending
Hgb Pending
Hct Pending
Plt Count Pending
Sodium Pending
Potassium Pending
Chloride Pending
Carbon Dioxide Pending
BUN Pending
Creatinine Pending
Glucose Pending
Calcium Pending
Total Bilirubin Pending
AST Pending
ALT Pending
Alkaline Phosphatase Pending
Vital Signs:
Vital Signs
Temp Pulse Resp BP Pulse Ox
99 F 57 18 117/58 96
03/08/24 05:50 03/08/24 03:15 03/08/24 03:15 03/08/24 03:15 03/08/24 03:15
I&O
03/07/24 03/08/24 03/09/24
06:59 06:59 06:59
Intake Total 720 / 720
Balance 720 / 720
[2024-03-08 08:26] LABS: % Basophils 0.5 % (0-2); % Eosinophils 1.6 % (0-6); % Immature Granulocytes 0.2 % (0-0.5); % Lymphocytes 16.6 % (20.5-51.1); % Monocytes 12.4 % (1.7-9.3); % Neutrophils 68.7 % (42.2-75.2); Absolute Eosinophils 0.1 10^3/uL (0-0.7); Absolute Monocytes 0.7 10^3/uL (0.1-0.6); Hematocrit 37.7 % (39.0-52.0); Hemoglobin 12.2 g/dL (13.0-18.0); Mean Corp Hgb Conc. 32.4 g/dL (33.0-37.0); Mean Corpuscular Volume 95.7 fL (80.0-94.0); Mean Platelet Volume 10.4 fL (7.4-10.4); Nucleated Red Blood Cells % 0 % (-); Platelet Count 123 10^3/uL (130-400); Red Blood Cell Count 3.94 10^6/uL (4.70-6.10); Red Cell Dist. Width 13.9 % (11.5-14.5); White Blood Cell Count 5.7 10^3/uL (4.8-10.8)
[2024-03-08] MEDS: PACERONE 200 MG PO (08:57)
[2024-03-08] MEDS: COREG 12.5 MG PO ×2 (08:57→20:25)
[2024-03-08] MEDS: LASIX 80 MG PO (08:57)
[2024-03-08] MEDS: VITAMIN D3 (cholecalciferol) 25 MCG PO (08:57)
[2024-03-08] MEDS: SYNTHROID 75 MCG PO (08:57)
[2024-03-08] MEDS: ZESTRIL 40 MG PO (08:57)
[2024-03-08] MEDS: ELIQUIS 2.5 MG PO ×2 (08:57→20:25)
[2024-03-08] MEDS: VITAMIN B-12 1000 MCG PO (08:58)
[2024-03-08 09:02] LABS: ALT (SGPT) 37 U/L (0-50); AST (SGOT) 38 U/L (17-59); Albumin 3.7 g/dl (3.5-5.0); Alkaline Phosphatase 58 U/L (38-126); Blood Urea Nitrogen 27 mg/dl (9-20); Calcium 8.3 mg/dl (8.4-10.2); Carbon Dioxide 31 mmol/L (22-30); Chloride 107 mmol/L (98-107); Estimated Creatinine Clearance 45 ml/min; Glucose 90 mg/dl (70-99); Potassium 3.7 mmol/L (3.5-5.1); Sodium 146 mmol/L (135-145); Total Bilirubin 3.7 mg/dl (0.2-1.3); Total Protein 6.1 g/dl (6.3-8.2); eGFR 49.87
[2024-03-08] MEDS: ProAIR HFA INHALER 1 PUFF INH (11:34)
[2024-03-08] MEDS: LASIX 40 MG PO (17:44)
[2024-03-08] MEDS: LIPITOR 40 MG PO (17:44)
[2024-03-08] MEDS: KCL 20 MEQ PO (17:44)
[2024-03-08] MEDS: KCL 10 MEQ PO (17:44)
[2024-03-08] MEDS: IMDUR (EXTENDED RELEASE) 60 MG PO (17:44)
[2024-03-09 03:33] VITALS: BP 111/61
[2024-03-09 06:00] VITALS: BMI 28.3
[2024-03-09 06:22] LABS: Hematocrit 36.8 % (39.0-52.0); Hemoglobin 11.9 g/dL (13.0-18.0); Mean Corp Hgb Conc. 32.3 g/dL (33.0-37.0); Mean Corpuscular Volume 95.8 fL (80.0-94.0); Mean Platelet Volume 10.7 fL (7.4-10.4); Platelet Count 129 10^3/uL (130-400); Red Blood Cell Count 3.84 10^6/uL (4.70-6.10); Red Cell Dist. Width 13.9 % (11.5-14.5)
[2024-03-09 07:00] LABS: ALT (SGPT) 38 U/L (0-50); AST (SGOT) 39 U/L (17-59); Albumin 3.3 g/dl (3.5-5.0); Alkaline Phosphatase 51 U/L (38-126); Blood Urea Nitrogen 30 mg/dl (9-20); Calcium 8.2 mg/dl (8.4-10.2); Carbon Dioxide 29 mmol/L (22-30); Chloride 105 mmol/L (98-107); Estimated Creatinine Clearance 45 ml/min; Glucose 98 mg/dl (70-99); Magnesium 2.4 mg/dl (1.6-2.3); Phosphorus 3.6 mg/dl (2.5-4.5); Potassium 3.8 mmol/L (3.5-5.1); Sodium 144 mmol/L (135-145); Total Bilirubin 2.8 mg/dl (0.2-1.3); Total Protein 5.8 g/dl (6.3-8.2); eGFR 49.87
--- NOTE | 2024-03-09 07:14 | W.PN.HOSP.TC ---
Today's Communication/Plan
-
repeat urinalysis, start empiric ceftriaxone after urinalysis obtained
wean O2 supplementation as tolerated
PT/OT
discharge planning SNF rehab
Assessment / Plan
Assessment / Plan
Physical Exam
General: Well Developed, Well Nourished and No Apparent Distress
HEENT: NormoCephalic, Moist mucous membranes and Atraumatic
Respiratory: Clear
Cardiac: S1/S2 and Regular Rhythm; No Murmur or Rub
GI: Soft, Non Tender, Non Distended and Normal Bowel Sounds; No Organomegaly
Rectal: Deferred by Provider
Musculoskeletal: No Clubbing, No Cyanosis and No Edema
Skin: No Rash
Neuro: Nonfocal/grossly intact
83M atrial fibrillation Eliquis with ICD, sick sinus syndrome, CAD, CHF, hemorrhagic CVA, CKDIII, HTN, HLD, hypothyroidism, cognitive decline presented from home for progressive generalized weakness and confusion past few days, COVID+.
# COVID bronchitis associated ambulatory dysfunction
-COVID-positive
-Chest x-ray shows no evidence of pneumonia/pulm edema, mild cardiomegaly
-wean O2 supplementation as tolerated down to 1L
-Albuterol as needed
-PT/OT appreciated SNF rehab
Paroxysmal atrial fibrillation
-Continue amiodarone
-Continue Eliquis
History of sick sinus syndrome with ICD
CAD
-Continue statin
-Continue isosorbide mononitrate
Chronic HFrEF
-Continue Coreg
-Continue Lasix with potassium
Mild acute on Chronic kidney disease stage III
-Initial Cr 1.8 trended down to 1.4
-baseline appears to be 1.4-1.5
History of hemorrhagic CVA
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
Essential hypertension
-Continue lisinopril
Hypercholesterolemia
Hypothyroidism
-Continue levothyroxine
Reported dysuria 03/09
-initial urinalysis on admission not suggestive of infection
-repeat urinalysis ordered
-empiric ceftriaxone ordered, to be started after repeat urinalysis is obtained
Full code
DVT prophylaxis�Eliquis
Regular diet
discussed with patient and patient's Sandy
I spent a total of 35 minutes with the patient or on the floor. More than 50% of this time involved counseling and coordination of care.
Anticipated Discharge: 24 - 48 hours
Subjective/Interval History
-
Date of Service: March 09, 2024
No acute distress sitting up comfortably in chair. at bedside notes patient continues to improve. Weaned down to 1L.
Objective Data
-
Labs:
Laboratory Results
03/09/24 03/09/24
05:44 05:45
WBC 5.0
Hgb 11.9 L
Hct 36.8 L
Plt Count 129 L
Sodium 144
Potassium 3.8
Chloride 105
Carbon Dioxide 29
BUN 30 H
Creatinine 1.4 H
Glucose 98
Calcium 8.2 L
Total Bilirubin 2.8 H
AST 39
ALT 38
Alkaline Phosphatase 51
Vital Signs:
Vital Signs
Temp Pulse Resp BP Pulse Ox
98.3 F 50 20 111/61 94
03/09/24 03:33 03/09/24 03:33 03/09/24 03:33 03/09/24 03:33 03/09/24 03:33
I&O
03/08/24 03/09/24 03/10/24
06:59 06:59 06:59
Intake Total 720 / 720 1380 / 1380
Output Total 1400 / 1400
Balance 720 / 720 - / 20
[2024-03-09 08:09] VITALS: BP 153/82
[2024-03-09] MEDS: ELIQUIS 2.5 MG PO ×2 (09:09→19:47)
[2024-03-09] MEDS: LASIX 80 MG PO (09:09)
[2024-03-09] MEDS: VITAMIN D3 (cholecalciferol) 25 MCG PO (09:09)
[2024-03-09] MEDS: ZESTRIL 40 MG PO (09:09)
[2024-03-09] MEDS: SYNTHROID 75 MCG PO (09:09)
[2024-03-09] MEDS: VITAMIN B-12 1000 MCG PO (09:09)
[2024-03-09] MEDS: COREG 12.5 MG PO (09:09)
[2024-03-09] MEDS: PACERONE 200 MG PO (09:09)
[2024-03-09 11:28] VITALS: BP 130/73
[2024-03-09 16:01] VITALS: BP 106/68
[2024-03-09] MEDS: LASIX 40 MG PO (17:29)
[2024-03-09] MEDS: LIPITOR 40 MG PO (17:29)
[2024-03-09] MEDS: KCL 20 MEQ PO (17:29)
[2024-03-09] MEDS: KCL 10 MEQ PO (17:29)
[2024-03-09] MEDS: IMDUR (EXTENDED RELEASE) 60 MG PO (17:29)
[2024-03-09 19:43] VITALS: BP 120/64
[2024-03-09] MEDS: ROCEPHIN 1000 MG IV (19:47)
[2024-03-09] MEDS: STERILE WATER FOR INJECTION 10 ML IV (19:48)
[2024-03-09] MEDS: COREG PO (19:50)
[2024-03-09 23:52] VITALS: BP 127/69
[2024-03-10] VITALS (8 sets, daily range): BP systolic 125–174; BP diastolic 70–84; PULSE 50; O2SAT 96; BMI 28.7
[2024-03-10 07:24] LABS: Hematocrit 39.3 % (39.0-52.0); Hemoglobin 12.7 g/dL (13.0-18.0); Mean Corp Hgb Conc. 32.3 g/dL (33.0-37.0); Mean Corpuscular Hgb 31.1 pg (27.0-31.0); Mean Corpuscular Volume 96.1 fL (80.0-94.0); Mean Platelet Volume 10.8 fL (7.4-10.4); Platelet Count 154 10^3/uL (130-400); Red Blood Cell Count 4.09 10^6/uL (4.70-6.10); Red Cell Dist. Width 13.7 % (11.5-14.5); White Blood Cell Count 6.1 10^3/uL (4.8-10.8)
[2024-03-10 07:53] LABS: ALT (SGPT) 42 U/L (0-50); AST (SGOT) 40 U/L (17-59); Albumin 3.7 g/dl (3.5-5.0); Alkaline Phosphatase 60 U/L (38-126); Blood Urea Nitrogen 33 mg/dl (9-20); Calcium 8.4 mg/dl (8.4-10.2); Carbon Dioxide 30 mmol/L (22-30); Chloride 100 mmol/L (98-107); Estimated Creatinine Clearance 42 ml/min; Glucose 93 mg/dl (70-99); Magnesium 2.4 mg/dl (1.6-2.3); Phosphorus 3.4 mg/dl (2.5-4.5); Potassium 3.8 mmol/L (3.5-5.1); Sodium 142 mmol/L (135-145); Total Bilirubin 2.4 mg/dl (0.2-1.3); Total Protein 6.3 g/dl (6.3-8.2); eGFR 45.91
[2024-03-10] MEDS: ZESTRIL 40 MG PO (08:47)
[2024-03-10] MEDS: COREG 12.5 MG PO ×2 (08:47→20:32)
[2024-03-10] MEDS: LASIX 80 MG PO (08:47)
[2024-03-10] MEDS: PACERONE 200 MG PO (08:47)
[2024-03-10] MEDS: VITAMIN D3 (cholecalciferol) 25 MCG PO (08:47)
[2024-03-10] MEDS: SYNTHROID 75 MCG PO (08:47)
[2024-03-10] MEDS: ELIQUIS 2.5 MG PO ×2 (08:48→20:32)
[2024-03-10] MEDS: VITAMIN B-12 1000 MCG PO (08:48)
[2024-03-10 09:09] LABS: Urine Albumin Negative (Neg - Trace); Urine Bilirubin Negative (Negative); Urine Character Clear (Clear); Urine Color Yellow; Urine Glucose Negative (Negative); Urine Ketone Negative (Negative); Urine Leukocyte Negative (Negative); Urine Nitrite Negative (Negative); Urine Occult Blood Negative (Negative); Urine Urobilinogen Negative (Neg - 1+)
--- NOTE | 2024-03-10 14:00 | W.PN.HOSP.TC ---
Today's Communication/Plan
-
OK for discharge to rehab
Assessment / Plan
Assessment / Plan
83M atrial fibrillation Eliquis with ICD, sick sinus syndrome, CAD, CHF, hemorrhagic CVA, CKDIII, HTN, HLD, hypothyroidism, cognitive decline presented from home for progressive generalized weakness and confusion past few days, COVID+.
CVS: S1-S2 normal
Chest: CTA B/L
Abdomen: Soft, NT / Bowel sounds present
Extremities: No edema
# COVID bronchitis associated ambulatory dysfunction
-Mild hypoxic respiratory insufficiency secondary to COVID now off oxygen
-COVID-positive
-Chest x-ray shows no evidence of pneumonia/pulm edema, mild cardiomegaly
-Albuterol as needed
-PT/OT appreciated SNF rehab
#Paroxysmal atrial fibrillation-Continue amiodarone, Coreg, Eliquis
#History of sick sinus syndrome with ICD
#CAD-Continue statin,,Coreg, isosorbide mononitrate, Lisinopril
#Chronic HFrEF-Continue Coreg, Lasix with potassium
#Mild acute on Chronic kidney disease stage III
-Initial Cr 1.8 trended down to 1.5
-Baseline appears to be 1.4-1.5
#History of hemorrhagic CVA
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
#Essential hypertension-Continue lisinopril
#Hyperlipidemia-Statin
#Hypothyroidism-Continue levothyroxine
#Reported dysuria 03/09- Neg UA. Pt says no Dysuria today. Stop AB
#Full code
#DVT prophylaxis�Eliquis
Discussed with patient and patient's Sandy at bed side
D/W Case management
Anticipated Discharge: Within 24 hours
Subjective/Interval History
-
Date of Service: March 10, 2024
Objective Data
-
Labs:
Laboratory Results
03/10/24
07:02
WBC 6.1
Hgb 12.7 L
Hct 39.3
Plt Count 154
Sodium 142
Potassium 3.8
Chloride 100
Carbon Dioxide 30
BUN 33 H
Creatinine 1.5 H
Glucose 93
Calcium 8.4
Total Bilirubin 2.4 H
AST 40
ALT 42
Alkaline Phosphatase 60
Vital Signs:
Vital Signs
Temp Pulse Resp BP Pulse Ox
98.3 F 50 20 129/75 98
03/10/24 10:03 03/10/24 10:03 03/10/24 10:03 03/10/24 10:03 03/10/24 10:16
I&O
03/09/24 03/10/24 03/11/24
06:59 06:59 06:59
Intake Total 1380 / 1380 480 / 480
Output Total 1400 / 1400 325 / 325
Balance -20 / -20 155 / 155
--- NOTE | 2024-03-10 17:02 | CM ---
Patient has has switched to inpatient, IMM provided to patient. Plan is for skilled placement. Per patient's spouse she has selected [facility], [facility] and [facility] referrals sent to facilities.
Plan; Skilled placement.
[2024-03-10] MEDS: KCL 20 MEQ PO (17:31)
[2024-03-10] MEDS: IMDUR (EXTENDED RELEASE) 60 MG PO (17:31)
[2024-03-10] MEDS: KCL 10 MEQ PO (17:31)
[2024-03-10] MEDS: LIPITOR 40 MG PO (17:31)
[2024-03-10] MEDS: LASIX 40 MG PO (17:32)
[2024-03-10] MEDS: ROBITUSSIN 200 MG PO ×2 (17:32→20:33)
[2024-03-11 02:44] VITALS: BP 167/99
[2024-03-11 03:37] VITALS: BP 125/68
[2024-03-11 06:00] VITALS: BMI 28.6
[2024-03-11 07:22] VITALS: BP 137/81
[2024-03-11 07:34] LABS: Hematocrit 39.6 % (39.0-52.0); Hemoglobin 13.1 g/dL (13.0-18.0); Mean Corp Hgb Conc. 33.1 g/dL (33.0-37.0); Mean Corpuscular Hgb 31.3 pg (27.0-31.0); Mean Corpuscular Volume 94.7 fL (80.0-94.0); Mean Platelet Volume 10.4 fL (7.4-10.4); Platelet Count 170 10^3/uL (130-400); Red Blood Cell Count 4.18 10^6/uL (4.70-6.10); Red Cell Dist. Width 13.4 % (11.5-14.5)
[2024-03-11] MEDS: ROBITUSSIN 200 MG PO ×4 (07:43→21:26)
[2024-03-11] MEDS: COREG 12.5 MG PO (07:44)
[2024-03-11] MEDS: ZESTRIL 40 MG PO (07:44)
[2024-03-11] MEDS: PACERONE 200 MG PO (07:44)
[2024-03-11] MEDS: LASIX 80 MG PO (07:44)
[2024-03-11] MEDS: ELIQUIS 2.5 MG PO ×2 (07:45→21:26)
[2024-03-11] MEDS: SYNTHROID 75 MCG PO (07:45)
[2024-03-11] MEDS: VITAMIN D3 (cholecalciferol) 25 MCG PO (07:45)
[2024-03-11] MEDS: VITAMIN B-12 1000 MCG PO (07:45)
[2024-03-11 08:05] LABS: ALT (SGPT) 45 U/L (0-50); AST (SGOT) 45 U/L (17-59); Albumin 3.9 g/dl (3.5-5.0); Alkaline Phosphatase 60 U/L (38-126); Blood Urea Nitrogen 32 mg/dl (9-20); Calcium 8.7 mg/dl (8.4-10.2); Carbon Dioxide 29 mmol/L (22-30); Chloride 101 mmol/L (98-107); Estimated Creatinine Clearance 45 ml/min; Glucose 87 mg/dl (70-99); Magnesium 2.3 mg/dl (1.6-2.3); Phosphorus 3.5 mg/dl (2.5-4.5); Potassium 3.8 mmol/L (3.5-5.1); Sodium 143 mmol/L (135-145); Total Bilirubin 2.9 mg/dl (0.2-1.3); Total Protein 6.4 g/dl (6.3-8.2); eGFR 49.87
[2024-03-11 11:24] VITALS: BP 122/65
--- NOTE | 2024-03-11 12:53 | CM ---
CM reviewed chart, spoke with Admissions at [facility], able to accept patient pending bed availability. CM attempted to call patients , call unable to go through, will attempt later. CM will continue to follow for all discharge planning
needs.
Plan; SNF, [facility] can accept 03/13, pending bed availability.
--- NOTE | 2024-03-11 14:35 | W.PN.HOSP.TC ---
Addendum entered and electronically signed by Farhan Robles MD 03/11/24 17:58:
Stage I sacral pressure injury present on admission
Original Note:
Today's Communication/Plan
-
watch pt
Rehab placement
Assessment / Plan
Assessment / Plan
83M atrial fibrillation Eliquis with ICD, sick sinus syndrome, CAD, CHF, hemorrhagic CVA, CKDIII, HTN, HLD, hypothyroidism, cognitive decline presented from home for progressive generalized weakness and confusion past few days, COVID+.
reports that the patient seems to be more confused. She found his briefs and slacks with urine. Patient reported that he fell but nursing does not report that he had a fall. I think he is confused. He is on a fall alarm.
CVS: S1-S2 normal
Chest: CTA B/L
Abdomen: Soft, NT / Bowel sounds present
Extremities: No edema
PRODUCTION SUPV -pleasantly confused. No focal deficits on exam
# TME from covid and also Dementia.
# COVID bronchitis associated ambulatory dysfunction
-Mild hypoxic respiratory insufficiency secondary to COVID now off oxygen
-COVID-positive
-Chest x-ray shows no evidence of pneumonia/pulm edema, mild cardiomegaly
-Albuterol as needed
-PT/OT appreciated SNF rehab
#Paroxysmal atrial fibrillation-Continue amiodarone, Coreg, Eliquis
#History of sick sinus syndrome with ICD
#CAD-Continue statin,,Coreg, isosorbide mononitrate, Lisinopril
#Chronic HFrEF-Continue Coreg, Lasix with potassium
#Mild acute on Chronic kidney disease stage III
-Initial Cr 1.8 trended down to 1.5
-Baseline appears to be 1.4-1.5
#History of hemorrhagic CVA
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
#Essential hypertension-Continue lisinopril
#Hyperlipidemia-Statin
#Hypothyroidism-Continue levothyroxine
#Reported dysuria 03/09- Neg UA. Pt says no Dysuria today. Stopped AB
#Full code
#DVT prophylaxis�Eliquis
Discussed with patient and patient's Sandy at bed side
D/W Case management
Encouraged patient to get out of bed and sit in the chair as much as possible
Discussed with nursing
Anticipated Discharge: Within 24 hours
Subjective/Interval History
-
Date of Service: March 11, 2024
Objective Data
-
Labs:
Laboratory Results
03/11/24
06:36
WBC 6.0
Hgb 13.1
Hct 39.6
Plt Count 170
Sodium 143
Potassium 3.8
Chloride 101
Carbon Dioxide 29
BUN 32 H
Creatinine 1.4 H
Glucose 87
Calcium 8.7
Total Bilirubin 2.9 H
AST 45
ALT 45
Alkaline Phosphatase 60
Vital Signs:
Vital Signs
Temp Pulse Resp BP Pulse Ox
99.1 F 55 18 122/65 98
03/11/24 11:24 03/11/24 11:24 03/11/24 11:24 03/11/24 11:24 03/11/24 11:24
I&O
03/10/24 03/11/24 03/12/24
06:59 06:59 06:59
Intake Total 480 / 480 1080 / 1080
Output Total 325 / 325 600 / 600
Balance 155 / 155 480 / 480
[2024-03-11 15:07] VITALS: BP 123/63
--- NOTE | 2024-03-11 15:41 | PN.CDI ---
CDI
- -
CDI:
Physician Documentation Request
Admit Date: 03/10/24 11:02
Dear Doctor Travis,
Clinical Indicators:
Patient admitted with COVID bronchitis.
03/07, 03/08 RN skin wound assessment: Sacrum Stage 1 Pressure Injury, POA
Treatment: Silicone Border Foam dressing per protocol
Physician documentation of the type and location of wounds is required for compliant documentation. Based on the above clinical findings and your assessment, please provide the following in your progress note:
1. Location of the ulcer/wound, including laterality.
2. Type (etiology) of ulcer/wound:
- Pressure (decubitus) ulcer
- Other, please specify
3. If a pressure ulcer, please also include the stage* of the ulcer:
- Stage 1 - Skin intact, non-blanchable redness
- Stage 2 - Partial thickness loss of dermis, includes intact or open blister
- Stage 3 - Full thickness tissue not including bone, tendon or muscle
- Stage 4 - Full thickness tissue loss, including exposed bone, tendon or muscle
- Unstageable - Full thickness loss in which the base of the ulcer is covered by slough (yellow, maria, boyle, green or brown) and/or eschar (maria, brown or black) in the wound bed.
- Unable to determine
Use of terms such as suspected, likely, concern for, or probable (associated with a specific diagnosis that is being evaluated, monitored, or treated as if it exists) are acceptable and can be coded in the inpatient setting, when documented at the
time of discharge.
Thank you,
Melisa Patiño RN BSN
CDI Specialist
available via tiger text
Please use your independent medical judgment in providing your response.
*Source: National Pressure Ulcer Advisory Panel (NPUAP)
[2024-03-11] MEDS: KCL 10 MEQ PO (17:18)
[2024-03-11] MEDS: LASIX 40 MG PO (17:18)
[2024-03-11] MEDS: LIPITOR 40 MG PO (17:18)
[2024-03-11] MEDS: KCL 20 MEQ PO (17:18)
[2024-03-11] MEDS: IMDUR (EXTENDED RELEASE) 60 MG PO (17:19)
[2024-03-11 21:51] VITALS: BP 141/79
[2024-03-11] MEDS: COREG PO (21:51)
[2024-03-12 06:00] VITALS: BMI 28.5
[2024-03-12] MEDS: VITAMIN B-12 1000 MCG PO (07:36)
[2024-03-12] MEDS: ZESTRIL 40 MG PO (07:36)
[2024-03-12] MEDS: ROBITUSSIN 200 MG PO ×4 (07:36→20:20)
[2024-03-12] MEDS: VITAMIN D3 (cholecalciferol) 25 MCG PO (07:36)
[2024-03-12] MEDS: SYNTHROID 75 MCG PO (07:36)
[2024-03-12] MEDS: LASIX 80 MG PO (07:36)
[2024-03-12] MEDS: PACERONE 200 MG PO (07:36)
[2024-03-12] MEDS: ELIQUIS 2.5 MG PO ×2 (07:36→20:20)
[2024-03-12 07:44] VITALS: BP 141/96
[2024-03-12] MEDS: COREG PO ×2 (07:50→20:16)
--- NOTE | 2024-03-12 11:40 | CM ---
CM spoke with , Sandy, discussed only accepting facility at this time is [facility], can accept Sunday. [facility] and [facility] unable to accept, additionally: [facility], [facility], [facility], [facility], [facility] Lott, [facility] all unable to accept. Additional referrals sent to Jaun Daniel, and [facility]. TT to Hospitalist with update. CM will continue to follow for all discharge planning needs.
Plan; SNF pending accepting facility, additional referrals sent.
[2024-03-12 15:06] VITALS: BP 124/63
--- NOTE | 2024-03-12 16:33 | W.PN.HOSP.TC ---
Today's Communication/Plan
-
Medically stable for discharge to rehab
Assessment / Plan
Assessment / Plan
83M atrial fibrillation Eliquis with ICD, sick sinus syndrome, CAD, CHF, hemorrhagic CVA, CKDIII, HTN, HLD, hypothyroidism, cognitive decline presented from home for progressive generalized weakness and confusion past few days, COVID+.
Seen earlier. Late documentation patient was seated in a chair
CVS: S1-S2 normal
Chest: CTA B/L
Abdomen: Soft, NT / Bowel sounds present
Extremities: No edema
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 No focal deficits on exam
# TME from covid and also Dementia.
# COVID bronchitis associated ambulatory dysfunction
-Mild hypoxic respiratory insufficiency secondary to COVID now off oxygen
-COVID-positive
-Chest x-ray shows no evidence of pneumonia/pulm edema, mild cardiomegaly
-Albuterol as needed
-PT/OT appreciated SNF rehab
#Paroxysmal atrial fibrillation-Continue amiodarone, Coreg, Eliquis
#History of sick sinus syndrome with ICD
#CAD-Continue statin,,Coreg, isosorbide mononitrate, Lisinopril
#Chronic HFrEF-Continue Coreg, Lasix with potassium
#Mild acute on Chronic kidney disease stage III
-Initial Cr 1.8 trended down to 1.5
-Baseline appears to be 1.4-1.5
#History of hemorrhagic CVA
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
#Essential hypertension-Continue lisinopril
#Hyperlipidemia-Statin
#Hypothyroidism-Continue levothyroxine
#Reported dysuria 03/09- Neg UA. Pt says no Dysuria today. Stopped AB
#Full code
#DVT prophylaxis�Eliquis
Discussed with patient and patient's Sandy at bed side
D/W Case management
Encouraged patient to get out of bed and sit in the chair as much as possible
Discussed with nursing
Anticipated Discharge: Within 24 hours
Subjective/Interval History
-
Date of Service: March 12, 2024
Objective Data
-
Vital Signs:
Vital Signs
Temp Pulse Resp BP Pulse Ox
98.7 F 54 18 124/63 97
03/12/24 15:06 03/12/24 15:06 03/12/24 15:06 03/12/24 15:06 03/12/24 15:06
I&O
03/11/24 03/12/24 03/13/24
06:59 06:59 06:59
Intake Total 1080 / 1080 360 / 360
Output Total 600 / 600 675 / 675
Balance 480 / 480 -315 / -315
[2024-03-12] MEDS: KCL 20 MEQ PO (17:50)
[2024-03-12] MEDS: LIPITOR 40 MG PO (17:50)
[2024-03-12] MEDS: IMDUR (EXTENDED RELEASE) 60 MG PO (17:50)
[2024-03-12] MEDS: LASIX 40 MG PO (17:50)
[2024-03-12] MEDS: KCL 10 MEQ PO (17:50)
[2024-03-12 20:16] VITALS: BP 137/80
[2024-03-12 22:39] VITALS: BP 149/84
[2024-03-13 06:00] VITALS: BMI 28.5
[2024-03-13 07:48] LABS: Hematocrit 37.7 % (39.0-52.0); Hemoglobin 12.8 g/dL (13.0-18.0); Mean Corpuscular Hgb 31.9 pg (27.0-31.0); Mean Platelet Volume 10.4 fL (7.4-10.4); Platelet Count 157 10^3/uL (130-400); Red Blood Cell Count 4.01 10^6/uL (4.70-6.10); Red Cell Dist. Width 13.2 % (11.5-14.5); White Blood Cell Count 6.1 10^3/uL (4.8-10.8)
[2024-03-13] MEDS: LASIX 80 MG PO (08:00)
[2024-03-13] MEDS: VITAMIN B-12 1000 MCG PO (08:00)
[2024-03-13] MEDS: ZESTRIL 40 MG PO (08:00)
[2024-03-13] MEDS: SYNTHROID 75 MCG PO (08:00)
[2024-03-13] MEDS: ROBITUSSIN 200 MG PO ×4 (08:01→22:22)
[2024-03-13] MEDS: VITAMIN D3 (cholecalciferol) 25 MCG PO (08:01)
[2024-03-13] MEDS: ELIQUIS 2.5 MG PO ×2 (08:01→22:22)
[2024-03-13] MEDS: PACERONE 200 MG PO (08:01)
[2024-03-13 08:08] LABS: Blood Urea Nitrogen 27 mg/dl (9-20); Calcium 8.3 mg/dl (8.4-10.2); Carbon Dioxide 29 mmol/L (22-30); Chloride 101 mmol/L (98-107); Estimated Creatinine Clearance 49 ml/min; Glucose 84 mg/dl (70-99); Potassium 3.7 mmol/L (3.5-5.1); Sodium 142 mmol/L (135-145); eGFR 54.51
[2024-03-13] MEDS: COREG PO (08:14)
[2024-03-13 08:15] VITALS: BP 149/83
--- NOTE | 2024-03-13 13:54 | CM ---
Addendum entered by Stacy Kennedy 03/13/24 14:06:
[facility]:
Report: [phone]

Discharge after 12:00 p.m. per facility request
Original Note:
CM spoke with Admissions at [facility], confirmed can accept patient tomorrow. CM spoke with patients , agreeable to [facility] SNF, patient will require ambulance transport. IMM reviewed with verbally, agreeable to discharge plan. CM will
continue to follow for all discharge planning needs.
Plan; [facility] tomorrow, ambulance forms placed on chart.
[2024-03-13 16:36] VITALS: BP 118/71
[2024-03-13] MEDS: IMDUR (EXTENDED RELEASE) 60 MG PO (17:22)
[2024-03-13] MEDS: LASIX 40 MG PO (17:22)
[2024-03-13] MEDS: LIPITOR 40 MG PO (17:22)
[2024-03-13] MEDS: KCL 20 MEQ PO (17:22)
[2024-03-13] MEDS: KCL 10 MEQ PO (17:22)
[2024-03-13] MEDS: COREG 12.5 MG PO (22:21)
[2024-03-14 06:00] VITALS: BMI 28.2
[2024-03-14 08:00] VITALS: BP 186/90
[2024-03-14 09:30] VITALS: BP 140/80
[2024-03-14] MEDS: ELIQUIS 2.5 MG PO (09:36)
[2024-03-14] MEDS: ROBITUSSIN 200 MG PO ×2 (09:36→12:23)
[2024-03-14] MEDS: ZESTRIL 40 MG PO (09:36)
[2024-03-14] MEDS: VITAMIN B-12 1000 MCG PO (09:37)
[2024-03-14] MEDS: PACERONE 200 MG PO (09:37)
[2024-03-14] MEDS: LASIX 80 MG PO (09:37)
[2024-03-14] MEDS: SYNTHROID 75 MCG PO (09:37)
[2024-03-14] MEDS: VITAMIN D3 (cholecalciferol) 25 MCG PO (09:37)
[2024-03-14] MEDS: COREG 12.5 MG PO (09:38)
--- NOTE | 2024-03-14 10:08 | CM ---
CM confirmed w/ hospitalist that pt is medically stable for d/c to [facility]
Per Shanique/[facility] pt can admit today. Prefer noon transport
credit verification clerk arranged transport for 12 pm, Shanique and doctor updated
CM attempted TC to spouse to inform of d/c to SNF today, no answer, left VM
[facility]
Report: [phone]

Plan: [facility] via ambulance transport
--- NOTE | 2024-03-14 11:39 | W.PN.HOSP.TC ---
Today's Communication/Plan
-
Discharge
Assessment / Plan
Assessment / Plan
83M atrial fibrillation Eliquis with ICD, sick sinus syndrome, CAD, CHF, hemorrhagic CVA, CKDIII, HTN, HLD, hypothyroidism, cognitive decline presented from home for progressive generalized weakness and confusion past few days, COVID+.
CVS: S1-S2 normal
Chest: CTA B/L
Abdomen: Soft, NT / Bowel sounds present
Extremities: No edema
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
# TME from covid and also Dementia. AT baseline.
# COVID bronchitis associated ambulatory dysfunction
-Mild hypoxic respiratory insufficiency secondary to COVID now off oxygen
-Chest x-ray shows no evidence of pneumonia/pulm edema, mild cardiomegaly
-Albuterol as needed
-PT/OT appreciated SNF rehab
#Paroxysmal atrial fibrillation-Continue amiodarone, Coreg, Eliquis
#History of sick sinus syndrome with ICD
#CAD-Continue statin,,Coreg, isosorbide mononitrate, Lisinopril
#Chronic HFrEF-Continue Coreg, Lasix with potassium
#Mild acute on Chronic kidney disease stage III
-Initial Cr 1.8 trended down to 1.3
-Baseline
#History of hemorrhagic CVA
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
#Essential hypertension-Continue lisinopril
#Hyperlipidemia-Statin
#Hypothyroidism-Continue levothyroxine
#Reported dysuria 03/09- Neg UA. Pt says no Dysuria today. Stopped AB
#Full code
#DVT prophylaxis�Eliquis
Discussed with patient and patient's Sandy at bed side
D/W Case management
Discussed with nursing
More than 30 minutes spent in discharge including
Final examination of the patient
Summarizing hospital stay
Instructions for continuing care to all relevant caregivers
Preparation of discharge records, prescriptions, and referral forms
Total time spent (in minutes): 31 min
Anticipated Discharge: Today
Subjective/Interval History
-
Date of Service: March 14, 2024
Objective Data
-
Vital Signs:
Vital Signs
Temp Pulse Resp BP Pulse Ox
97.2 F 65 18 140/80 94
03/14/24 08:00 03/14/24 09:30 03/14/24 09:30 03/14/24 09:30 03/14/24 08:00
I&O
03/13/24 03/14/24 03/15/24
06:59 06:59 06:59
Intake Total 1320 / 1320 960 / 960
Output Total 1410 / 1410 300 / 300
Balance -90 / -90 660 / 660
--- NOTE | 2024-03-14 11:45 | W.DS.TRANS ---
Addendum entered and electronically signed by Farhan Robles MD 03/14/24 15:40:
Dictation- [id number]
Original Note:
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
-
Discharge Instructions:
Sleep Apnea Risk High
Discharge Diagnosis/Procedures COVID-19 infection
Paroxysmal atrial fibrillation
Coronary artery disease
Chronic heart failure
CKD
History of hemorrhagic CVA
Cognitive dysfunction
Hypertension
Hyperlipidemia
Hypothyroidism
Diet Restrict fluids to 64 oz,2 Gram Sodium
Activity As tolerated
Driving Restrictions No driving
Other Services PT,OT
Specialty Instructions Weigh Daily
Instructions:
Stand-Alone Forms:
Changes to Home Medications: Yes
Discharge Medications:
DC Medications w/original date entered in [email or web address]
levothyroxine 75 mcg tablet 75 mcg PO DAILY Thyroid 04/21/16
atorvastatin 40 mg tablet 40 mg PO QPM High cholesterol 10/17/19
cholecalciferol (vitamin D3) 25 mcg (1,000 unit) tablet 1,000 units PO DAILY Supplement 10/17/19
cyanocobalamin (vitamin B-12) 1,000 mcg tablet 1,000 mcg PO DAILY Supplement 10/17/19
lisinopril 40 mg tablet 40 mg PO DAILY Blood pressure 10/17/19
potassium chloride 10 mEq tablet,extended release(part/cryst) 20 meq PO QPM Electrolyte Repletion 09/22/20
amiodarone 200 mg tablet 200 mg PO DAILY Heart Failure 08/04/22
furosemide 40 mg tablet 40 mg PO QPM Fluid Retention/Swelling 10/03/23
furosemide 80 mg tablet 80 mg PO DAILY Fluid retention/Swelling 10/23/23
acetaminophen 325 mg tablet (Tylenol) 325 mg PO BIDPRN PRN mild pain 03/07/24
apixaban 2.5 mg tablet (Eliquis) 2.5 mg PO BID Blood Clot Prevention/Tx 03/07/24
isosorbide mononitrate 60 mg tablet,extended release 24 hr 60 mg PO QPM Heart Disease/Condition 03/07/24
potassium chloride 10 mEq tablet,extended release 10 meq PO QPM Electrolyte Repletion 03/07/24
albuterol sulfate 90 mcg/actuation aerosol inhaler 1 puff inhalation R Q4HPRN PRN wheezing, SOB #0 grams 03/14/24
carvedilol 12.5 mg tablet 12.5 mg PO BID Blood pressure #0 tabs 03/14/24
guaifenesin 100 mg/5 mL oral liquid 200 mg (10 mL) PO QID Lung/breathing issues #0 mL 03/14/24
Home Medication Changes
Coreg decreased.
new
guaifenesin 100 mg/5 mL oral liquid 200 mg (10 mL) PO QID Lung/breathing issues #0 mL 03/14/24
albuterol sulfate 90 mcg/actuation aerosol inhaler 1 puff inhalation R Q4HPRN PRN wheezing, SOB #0 grams 03/14/24
Pending Results: No
== END 2024-03-14 12:30 | DRG 177 ==
LOC: 4 WEST ACU 11:02
PROVIDERS: Internal Medicine; ADMITTING PHYSICIAN Hospitalist; ATTENDING PHYSICIAN Hospitalist; EMERGENCY PHYSICIAN Emergency Medicine; FAMILY PHYSICIAN Internal Medicine
DX: U07.1 COVID-19 (principal); G92.8 Other toxic encephalopathy; I13.0 Hypertensive heart and chronic kidney disease with heart failure and stage 1 through stage 4 chronic kidney disease, or unspecified chronic kidney disease; I50.22 Chronic systolic (congestive) heart failure; N17.9 Acute kidney failure, unspecified; J20.8 Acute bronchitis due to other specified organisms; I48.0 Paroxysmal atrial fibrillation; N18.30 Chronic kidney disease, stage 3 unspecified; I25.10 Atherosclerotic heart disease of native coronary artery without angina pectoris; L89.151 Pressure ulcer of sacral region, stage 1; E78.00 Pure hypercholesterolemia, unspecified; E03.9 Hypothyroidism, unspecified; G47.30 Sleep apnea, unspecified; M16.11 Unilateral primary osteoarthritis, right hip; I49.5 Sick sinus syndrome; F03.90 Unspecified dementia, unspecified severity, without behavioral disturbance, psychotic disturbance, mood disturbance, and anxiety; R06.89 Other abnormalities of breathing; R09.02 Hypoxemia; I69.318 Other symptoms and signs involving cognitive functions following cerebral infarction; R29.6 Repeated falls; Z75.1 Person awaiting admission to adequate facility elsewhere; Z95.810 Presence of automatic (implantable) cardiac defibrillator; Z88.2 Allergy status to sulfonamides; Z88.8 Allergy status to other drugs, medicaments and biological substances; Z79.890 Hormone replacement therapy; Z79.01 Long term (current) use of anticoagulants; Z79.899 Other long term (current) drug therapy
CPT/HCPCS: 51701; 70450; 71046; 73502; 80048; 80053; 81003; 83690; 83735; 84100; 85025; 85027; 87502; 87811; 93005; 93289; 94640; 97116; 97167; 97530; 99285

== ENCOUNTER → 2024-03-21 10:27 | Outpatient (REF) | payer OTHER, MEDICARE, SELFPAY ==
[2024-03-21 11:22] LABS: Hematocrit 37.1 % (39.0-52.0); Hemoglobin 12.2 g/dL (13.0-18.0); Mean Corp Hgb Conc. 32.9 g/dL (33.0-37.0); Mean Corpuscular Hgb 31.2 pg (27.0-31.0); Mean Corpuscular Volume 94.9 fL (80.0-94.0); Mean Platelet Volume 10.4 fL (7.4-10.4); Platelet Count 192 10^3/uL (130-400); Red Blood Cell Count 3.91 10^6/uL (4.70-6.10); Red Cell Dist. Width 14.2 % (11.5-14.5); White Blood Cell Count 6.1 10^3/uL (4.8-10.8)
[2024-03-21 11:30] LABS: Blood Urea Nitrogen 23 mg/dl (9-20); Calcium 8.5 mg/dl (8.4-10.2); Carbon Dioxide 28 mmol/L (22-30); Chloride 105 mmol/L (98-107); Glucose 85 mg/dl (70-99); Potassium 3.6 mmol/L (3.5-5.1); Sodium 145 mmol/L (135-145); eGFR 49.87
[2024-03-21 11:56] LABS: TSH 3.97 uIU/ml (0.47-4.68)
== END ==
LOC: OLABP 10:27
PROVIDERS: ATTENDING PHYSICIAN Family Medicine
DX: U07.1 COVID-19 (principal); J40 Bronchitis, not specified as acute or chronic; G92.8 Other toxic encephalopathy; M62.81 Muscle weakness (generalized); I51.7 Cardiomegaly; I48.0 Paroxysmal atrial fibrillation
CPT/HCPCS: 36415; 80048; 84439; 84443; 85027

== ENCOUNTER 2024-06-11 15:57 | Emergency (ER) | payer MEDICARE, OTHER, SELFPAY ==
[2024-06-11 16:03] VITALS: BP 148/86
[2024-06-11 16:56] LABS: % Basophils 1.1 % (0-2); % Eosinophils 1.8 % (0-6); % Immature Granulocytes 0.3 % (0-0.5); % Lymphocytes 23.8 % (20.5-51.1); % Monocytes 9.2 % (1.7-9.3); % Neutrophils 63.8 % (42.2-75.2); Absolute Basophils 0.1 10^3/uL (0-0.2); Absolute Eosinophils 0.1 10^3/uL (0-0.7); Absolute Lymphocytes 1.5 10^3/uL (1.2-3.4); Absolute Monocytes 0.6 10^3/uL (0.1-0.6); Hematocrit 41.8 % (39.0-52.0); Hemoglobin 13.5 g/dL (13.0-18.0); Mean Corp Hgb Conc. 32.3 g/dL (33.0-37.0); Mean Corpuscular Hgb 31.2 pg (27.0-31.0); Mean Corpuscular Volume 96.5 fL (80.0-94.0); Mean Platelet Volume 10.1 fL (7.4-10.4); Nucleated Red Blood Cells % 0 % (-); Platelet Count 156 10^3/uL (130-400); Red Blood Cell Count 4.33 10^6/uL (4.70-6.10); Red Cell Dist. Width 13.6 % (11.5-14.5); White Blood Cell Count 6.2 10^3/uL (4.8-10.8)
[2024-06-11 17:12] LABS: ALT (SGPT) 34 U/L (0-50); AST (SGOT) 31 U/L (17-59); Albumin 4.5 g/dl (3.5-5.0); Alkaline Phosphatase 83 U/L (38-126); Blood Urea Nitrogen 24 mg/dl (9-20); Calcium 8.8 mg/dl (8.4-10.2); Carbon Dioxide 29 mmol/L (22-30); Chloride 103 mmol/L (98-107); Glucose 87 mg/dl (70-99); Sodium 142 mmol/L (135-145); Total Bilirubin 2.9 mg/dl (0.2-1.3); Total Protein 7.3 g/dl (6.3-8.2); eGFR 49.87
[2024-06-11 17:20] LABS: NT-proBNP 3160 pg/ml
[2024-06-11 18:42] VITALS: BP 167/91; BMI 29.9
[2024-06-11 19:00] VITALS: BP 165/84
--- NOTE | 2024-06-11 19:28 | ED.GENMED ---
History of Present Illness
<Bonnie Rosen MD, Resident - Last Filed: 06/12/24 00:26>
General
Chief Complaint: Swelling
Source: patient and spouse
Exam Limitations: none
Time Seen by Provider: 06/11/24 19:10
Nursing documentation reviewed up to this point in time: agreed with
History of Present Illness
History of Present Illness:
83yo M with PMH CHF, afib, SSS with pacer/defiibrilator, CVA, who presents from home to ED for for swelling of right ankle. Patient himself denies any complaints, doesn't notice ankle swelling, review of systems negative, he defers to his for
the history. reports she noticed right ankle swelling worse than the left this morning. She weighed him and was 231 lbs this AM-- last weight was 225.5 on May 05. She reports noncompliance with sodium/fluid restriction diet over the holidays.
She called the outpatient physician, who referred them to ED.
Past History
<Bonnie Rosen MD, Resident - Last Filed: 06/12/24 00:26>
Past History
ED Past Medical History: Arrthythmia (Atrial fibrillation, sick sinus syndrome, ventricular dysrhythmia), CAD, CHF, CVA (Hemorrhagic stroke, TIA), GERD, HTN, Hypercholesterolemia and Hypothyroidism
ED Past Surgical History: Brain (craniotomy 2000), Cardiac (Dual chamber Pacemaker/AICD), Cholecystectomy (2003), Urological (cystoscopy/ureteroscopy/stone extraction/stent 1994) and Other (rectal fistula 1971, nasal repair 1956)
Patient has exhibited threatening behavior?: No
Social History
Tobacco: Non-smoker
Alcohol: None
Drug: None
Personal:
Living: with family
Employment: Retired
Family History
Family History: Other (Noncontributory)
Review of Systems
<Bonnie Rosen MD, Resident - Last Filed: 06/12/24 00:26>
Review of Systems
Allergies reviewed?: Yes
Constitutional: Reports weight gain (see HPI); Denies fever, fatigue or chills
EENT: Reports no symptoms
Respiratory: Reports cough; Denies hemoptysis or trouble breathing
Cardiac: Denies chest pain, diaphoresis, palpitations or syncope
ABD/GI: Reports no symptoms; Denies abdominal pain, nausea, vomiting, diarrhea, constipated, bloody stools or black stools
: Reports no symptoms; Denies dysuria or difficulty voiding
Musculoskeletal: Reports edema (see HPI)
Skin: Reports no symptoms
Neurological: Reports no symptoms; Denies dizzy, headache, weakness or numbness
Endocrine: Reports no symptoms
Hematologic/Lymphatic: Reports no symptoms
Psychiatric: Reports no symptoms
Phy Exam
<Bonnie Rosen MD, Resident - Last Filed: 06/12/24 00:26>
General Physical Exam
General Presentation: well appearing and no apparent distress
General age: appears stated age
General Skin: dry
General Habitus: normal and elderly
General Mental: alert
Cardiovascular Exam
Cardiovascular Exam: regular rate/rhythm and no murmur
Heart Sounds: normal
Pulmonary Exam
Pulmonary Exam: lungs clear, no respiratory distress, no crackles, no rhonchi, no wheezing, no cough and other (nonlabored breathing)
Oxygen Status: room air
Gastrointestinal Exam
Gastrointestinal Exam: normal bowel sounds, non tender, soft and non distended
Neurological Exam
Neurological Exam: alert
Musculoskeletal Exam
Musculoskeletal Exam: edema (2+ pitting edema bilateral lower extremities, symmetric) and other (calves nontender, no apparent injury to lower extremities)
Psychiatric Exam
Psychiatric Exam: other (flat affect)
Scores
<Bonnie Rosen MD, Resident - Last Filed: 06/12/24 00:26>
Heart Failure Risk
Heart Failure Risk Score: Yes
History of Stroke or TIA: Yes
History of intubation for respiratory distress: No
Heart rate on ED arrival >/= 110: No
SaO2 <90% on arrival on room air: No
HR >/=110 during 3min walk test (or too ill to perform test): No
ECG has acute ischemic changes: No
Urea >/=12mmol/L (BUN 33.6mg/dL): No
Serum CO2>/=35mmol/L: No
Troponin I or T elevated to VA Level (0.4mg/dL): No
NT-proBNP >/=5,000ng/L (5,000pg/ml): No
HF Risk Score: 1
Admission Status: MEDIUM RISK 5.1% Consider observation or discharge to home with homecare & f/u visit to PCP/Central Supply Clerk, or SNF for treatment
Course
<Bonnie Rosen MD, Resident - Last Filed: 06/12/24 00:26>
Orders/Labs/Results
Orders:
Orders
06/11/24 16:07
ECG [Electrocardiogram (*1)] Urgent
Reason for Study: Other
Other Reason for Exam: swelling
CR Chest - 2 Views Urgent
Comment:
Reason For Exam: cough
06/11/24 16:08
EKG- Treatment ONCE
06/11/24 16:48
Complete Blood Count/With Diff Urgent
Comprehensive Metabolic Panel Urgent
NT-proBNP Urgent
06/11/24 20:30
Interrogate Pacemaker- Treatment ONCE
Abnormal Lab Results
06/11/24
16:48
RBC 4.33 L 10^6/uL
(4.70-6.10)
MCV 96.5 H fL
(80.0-94.0)
MCH 31.2 H pg
(27.0-31.0)
MCHC 32.3 L g/dL
(33.0-37.0)
BUN 24 H mg/dl
(9-20)
Creatinine 1.4 H mg/dL
(0.7-1.3)
Total Bilirubin 2.9 H mg/dl
(0.2-1.3)
06/11/24 16:48
06/11/24 16:48
Vital Signs
Initial and Last Documented VS:
Initial Vital Signs
Temp Pulse Resp BP Pulse Ox
98.1 F 48 20 148/86 95
06/11/24 16:03 06/11/24 16:03 06/11/24 16:03 06/11/24 16:03 06/11/24 16:03
Last Documented Vital Signs
Temp Pulse Resp BP Pulse Ox
98.1 F 55 23 166/88 96
06/11/24 16:03 06/11/24 21:30 06/11/24 20:45 06/11/24 21:00 06/11/24 21:30
<Shubham Ross, DO - Last Filed: 06/11/24 21:37>
Orders/Labs/Results
Orders:
Orders
06/11/24 16:07
ECG [Electrocardiogram (*1)] Urgent
Reason for Study: Other
Other Reason for Exam: swelling
CR Chest - 2 Views Urgent
Comment:
Reason For Exam: cough
06/11/24 16:08
EKG- Treatment ONCE
06/11/24 16:48
Complete Blood Count/With Diff Urgent
Comprehensive Metabolic Panel Urgent
NT-proBNP Urgent
06/11/24 20:30
Interrogate Pacemaker- Treatment ONCE
Abnormal Lab Results
06/11/24
16:48
RBC 4.33 L 10^6/uL
(4.70-6.10)
MCV 96.5 H fL
(80.0-94.0)
MCH 31.2 H pg
(27.0-31.0)
MCHC 32.3 L g/dL
(33.0-37.0)
BUN 24 H mg/dl
(9-20)
Creatinine 1.4 H mg/dL
(0.7-1.3)
Total Bilirubin 2.9 H mg/dl
(0.2-1.3)
06/11/24 16:48
06/11/24 16:48
Vital Signs
Initial and Last Documented VS:
Initial Vital Signs
Temp Pulse Resp BP Pulse Ox
98.1 F 48 20 148/86 95
06/11/24 16:03 06/11/24 16:03 06/11/24 16:03 06/11/24 16:03 06/11/24 16:03
Last Documented Vital Signs
Temp Pulse Resp BP Pulse Ox
98.1 F 55 23 166/88 96
06/11/24 16:03 06/11/24 21:30 06/11/24 20:45 06/11/24 21:00 06/11/24 21:30
<Bonnie Rosen MD, Resident - Last Filed: 06/12/24 00:26>
MDM/Problems Addressed
Differential Diagnosis Includes:
CHF with fluid retention
Less likely DVT given compliance with eliquis and bilateral nature of edema
Not suspicious for cellulitis given absence of erythema, no signs/symptoms infection
MDM/Problems Addressed:
83yo M with PMH CHF, afib, SSS with pacer/defibrillator, CVA, who presents to ED for swelling of ankles.
Most likely fluid retention from poor compliance with low sodium diet and fluid restriction.
Plan to discharge home and take 80mg lasix tonight (double the usual PM dose).
Bradycardia noted without pacer spikes on EKG/school bus monitor-- will interrogate medtronic pacemaker.
<Shubham Ross DO - Last Filed: 06/11/24 21:37>
*Radiology
Radiology exam reviewed: preliminary read by ED provider (No acute process)
*Pulse Oximetry
Patient hypoxic: no
*EKG
Interpreted by ED Provider?: Yes
Interpretation: abnormal
Rate: bradycardiac
Rhythm: a-fib
QRS Pattern: left bundle branch block
Ischemia: non-specific ST changes
*Movie Operator Interpretation
Rate: bradycardiac
Interpretation: abnormal
Rhythm: a-fib
*Critical Care Note
Total Time (30-74mins, 75-104mins- exclusive of procedures): Not Applicable
Data Reviewed
Review of Other/Old Records Reveals: Discharge Summary (Discharge summary from February 2024 reviewed showing ambulatory dysfunction)
Source: patient and spouse
Prescriptions/Medications Considered But Not Given:
Considered IV Lasix but patient stable and would prefer to take it at home so he does not have to urinate on the drive. He will take 80 mg this evening
<Bonnie Rosen MD, Resident - Last Filed: 06/12/24 00:26>
Update Note
Update Note:
2129: [employer] report reviewed-- no recorded events. Ventricular pacer allows for mild bradycardia. Will discharge home with plan as above.
ED Attending Note
<Bonnie Rosen MD, Resident - Last Filed: 06/12/24 00:26>
-
Portions of this chart may have been created with voice recognition software.� Occasional wrong word or��sound alike� substitutions may have occurred due to the inherent limitations of voice recognition software.
<Shubham Ross DO - Last Filed: 06/11/24 21:37>
ED Attending Note
Patient seen and examined by attending physician: Yes
I performed a history and physical exam of patient and discussed management with resident, I reviewed resident's note and agree with documented findings and plan of care.: Yes
ED Attending Note:
83-year-old male who has no complaints but was concerned about ankle swelling. I do suspect he may have a little bit dementia onset. He otherwise well-appearing is a nonfocal exam. Already anticoagulated. Pacemaker interrogation grossly
unremarkable. Outpatient follow-up recommended will send to the heart failure follow-up online
Discharge Plan
Departure
Patient Disposition: Home (Routine Discharge)
Date of Disposition: 06/11/24
Time of Disposition: 21:32
Patient with high blood pressure during this ER visit?: Yes
Discharge Problem:
CHF (congestive heart failure)
Instructions: *CBC Heart Failure Instructions
Prescriptions:
No Action
levothyroxine 75 MCG tablet
75 mcg PO DAILY
atorvastatin 40 MG tablet
40 mg PO QPM
cyanocobalamin (vitamin B-12) 1,000 MCG tablet
1,000 mcg PO DAILY
lisinopril 40 MG tablet
40 mg PO DAILY
cholecalciferol (vitamin D3) 1,000 UNITS tablet
1,000 units PO DAILY
potassium chloride 10 MEQ tablet,ER particles/crystals
20 meq PO QPM
amiodarone 200 mg Tablet
200 mg PO DAILY
furosemide 40 mg Tablet
40 mg PO QPM
Rx Instructions:
1600
furosemide 80 MG tablet
80 mg PO DAILY
Rx Instructions:
0800
acetaminophen [Tylenol] 325 mg Tablet
325 mg PO BIDPRN PRN (Reason: mild pain)
potassium chloride 10 mEq Tablet Extended Release
10 meq PO QPM
isosorbide mononitrate 60 MG tablet extended release 24 hr
60 mg PO QPM
Eliquis 2.5 mg Tablet
2.5 mg PO BID
guaifenesin 100 mg/5 mL Liquid
200 mg PO QID Qty: 0 0RF
albuterol sulfate 90 mcg/actuation Hfa Aerosol Inhaler
1 puff inhalation R Q4HPRN PRN (Reason: wheezing, SOB) Qty: 0 0RF
carvedilol 12.5 MG tablet
12.5 mg PO BID Qty: 0 0RF
Referrals:
Naveen Li MD [Active] - Call in 1-3 days for appt (Your machine pecan picker office will call tomorrow to follow up. If you do not hear from them, please call to schedule next appointment.)
Luiza Campbell MD [Family Provider] - Follow up in 5-7 days
Activity Restrictions/Additional Instructions:
You were seen in the Emergency Room for swelling in your ankles.
Your chest xray did not show pulmonary edema. It did show an enlarged heart, which was seen on previous xrays too.
Your weight today was 226.6 lbs.
When you get home, you should take 80mg of lasix (furosemide) today. Tomorrow, you can go back to your regular doses (80mg in the morning and 40mg in the afternoon).
Continue your low sodium diet and fluid restriction.
Measure your weight everyday and write it down to keep track. Call your machine pecan picker if your weight increases by 2-3 lbs per day or by 5 lbs in 1 week.
Return to the Emergency Room if you develop any chest pain, difficulty breathing, confusion.
Interventions
Interventions:
*Risk Screen - Suicide Last Done: 06/11/24 21:49
*General Assessment Last Done: 06/11/24 16:03
*Neglect/Abuse Screening Last Done: 06/11/24 18:44
ED- Fall Risk Assessment Last Done: 06/11/24 18:44
*ED COVID-19 Vaccine History Last Done: 06/11/24 18:44
*Nursing Disposition Last Done: 06/11/24 21:49
ED- Cardiac Assessment Last Done: 06/11/24 18:44
ED- Pulmonary Assessment Last Done: 06/11/24 18:44
ED-Skin Assessment Last Done: 06/11/24 18:44
Discharge Date and Time
Discharge Date/Time: 06/11/24 21:51
Print Language: PUERTO RICAN
[2024-06-11 20:00] VITALS: BP 165/81
[2024-06-11 21:00] VITALS: BP 166/88
== END 2024-06-11 21:51 | disposition home or self-care (01) ==
LOC: EMR 15:57
PROVIDERS: Student in an Organized Health Care Education/Training Program; EMERGENCY PHYSICIAN Emergency Medicine; FAMILY PHYSICIAN Internal Medicine
DX: I11.0 Hypertensive heart disease with heart failure (principal); I50.9 Heart failure, unspecified; E03.9 Hypothyroidism, unspecified; E78.00 Pure hypercholesterolemia, unspecified; I25.10 Atherosclerotic heart disease of native coronary artery without angina pectoris; I48.91 Unspecified atrial fibrillation; K21.9 Gastro-esophageal reflux disease without esophagitis; Z86.73 Personal history of transient ischemic attack (TIA), and cerebral infarction without residual deficits; Z90.49 Acquired absence of other specified parts of digestive tract; Z95.5 Presence of coronary angioplasty implant and graft; Z95.810 Presence of automatic (implantable) cardiac defibrillator; Z91.119 Patient's noncompliance with dietary regimen due to unspecified reason
CPT/HCPCS: 99285; 71046; 80053; 83880; 85025; 93005

== ENCOUNTER → 2024-06-17 09:05 | Outpatient (REF) | payer MEDICARE, OTHER, SELFPAY ==
[2024-06-17 12:49] LABS: ALT (SGPT) 33 U/L (0-50); AST (SGOT) 33 U/L (17-59); Albumin 4.1 g/dl (3.5-5.0); Alkaline Phosphatase 75 U/L (38-126); Blood Urea Nitrogen 24 mg/dl (9-20); Calcium 8.7 mg/dl (8.4-10.2); Carbon Dioxide 32 mmol/L (22-30); Chloride 100 mmol/L (98-107); Glucose 98 mg/dl (70-99); HDL Cholesterol 40 mg/dl; LDL Cholesterol, Calculated 88 mg/dl; Potassium 4.1 mmol/L (3.5-5.1); Sodium 140 mmol/L (135-145); Total Bilirubin 2.9 mg/dl (0.2-1.3); Total Cholesterol 143 mg/dl (50-199); Total Protein 6.7 g/dl (6.3-8.2); Triglyceride 76 mg/dl (10-149); Very Low Density Lipoprotein 15 mg/dl (0-30); eGFR 45.91
[2024-06-17 12:50] LABS: % Immature Granulocytes 0.4 % (0-0.5); % Lymphocytes 24.5 % (20.5-51.1); % Neutrophils 63.1 % (42.2-75.2); Absolute Basophils 0.1 10^3/uL (0-0.2); Absolute Eosinophils 0.1 10^3/uL (0-0.7); Absolute Lymphocytes 1.3 10^3/uL (1.2-3.4); Absolute Monocytes 0.5 10^3/uL (0.1-0.6); Absolute Neutrophils 3.2 10^3/uL (1.4-6.5); Hematocrit 44.1 % (39.0-52.0); Hemoglobin 13.9 g/dL (13.0-18.0); Mean Corp Hgb Conc. 31.5 g/dL (33.0-37.0); Mean Corpuscular Volume 98.2 fL (80.0-94.0); Mean Platelet Volume 10.1 fL (7.4-10.4); Nucleated Red Blood Cells % 0 % (-); Platelet Count 168 10^3/uL (130-400); Red Blood Cell Count 4.49 10^6/uL (4.70-6.10); Red Cell Dist. Width 13.6 % (11.5-14.5); White Blood Cell Count 5.1 10^3/uL (4.8-10.8)
[2024-06-17 13:13] LABS: TSH Reflex To Free T4 3.98 uIU/ml (0.47-4.68)
[2024-06-17 14:33] LABS: Glycohemoglobin (HgbA1c) 5.7 % (4.0-5.6)
== END ==
LOC: HWLAB 09:05
PROVIDERS: ATTENDING PHYSICIAN Internal Medicine
DX: I10 Essential (primary) hypertension (principal); I25.2 Old myocardial infarction; I50.22 Chronic systolic (congestive) heart failure; E78.5 Hyperlipidemia, unspecified; E03.9 Hypothyroidism, unspecified; I48.0 Paroxysmal atrial fibrillation; N18.31 Chronic kidney disease, stage 3a; R73.9 Hyperglycemia, unspecified
CPT/HCPCS: 36415; 80053; 80061; 83036; 84443; 85025

== ENCOUNTER → 2024-09-26 10:02 | Outpatient (REF) | payer MEDICARE, OTHER, SELFPAY ==
[2024-09-26 12:49] LABS: ALT (SGPT) 37 U/L (0-50); AST (SGOT) 31 U/L (17-59); Albumin 4.4 g/dl (3.5-5.0); Alkaline Phosphatase 64 U/L (38-126); Blood Urea Nitrogen 25 mg/dl (9-20); Carbon Dioxide 31 mmol/L (22-30); Chloride 104 mmol/L (98-107); Glucose 96 mg/dl (70-99); HDL Cholesterol 42 mg/dl; LDL Cholesterol, Calculated 98 mg/dl; Sodium 146 mmol/L (135-145); Total Bilirubin 2.4 mg/dl (0.2-1.3); Total Cholesterol 155 mg/dl (50-199); Total Protein 6.9 g/dl (6.3-8.2); Triglyceride 78 mg/dl (10-149); Very Low Density Lipoprotein 15 mg/dl (0-30); eGFR 39.51
[2024-09-26 13:22] LABS: Glycohemoglobin (HgbA1c) 5.6 % (4.0-5.6)
== END ==
LOC: HWLAB 10:02
PROVIDERS: ATTENDING PHYSICIAN Internal Medicine; REFERRING PHYSICIAN Internal Medicine
DX: I10 Essential (primary) hypertension (principal); E03.9 Hypothyroidism, unspecified; E78.5 Hyperlipidemia, unspecified; R73.03 Prediabetes
CPT/HCPCS: 36415; 80053; 80061; 83036

== ENCOUNTER → 2025-02-05 09:52 | Outpatient (REF) | payer MEDICARE, OTHER, SELFPAY ==
[2025-02-05 12:51] LABS: Hematocrit 41.7 % (39.0-52.0); Hemoglobin 13.6 g/dL (13.0-18.0); Mean Corp Hgb Conc. 32.6 g/dL (33.0-37.0); Mean Corpuscular Volume 95.9 fL (80.0-94.0); Nucleated Red Blood Cells % 0 % (-); Platelet Count 153 10^3/uL (130-400); Red Cell Dist. Width 13.8 % (11.5-14.5)
[2025-02-05 13:11] LABS: ALT (SGPT) 33 U/L (0-50); AST (SGOT) 29 U/L (17-59); Albumin 4.0 g/dl (3.5-5.0); Alkaline Phosphatase 65 U/L (38-126); Blood Urea Nitrogen 23 mg/dl (9-20); Calcium 8.8 mg/dl (8.4-10.2); Carbon Dioxide 33 mmol/L (22-30); Chloride 103 mmol/L (98-107); Glucose 89 mg/dl (70-99); HDL Cholesterol 41 mg/dl; LDL Cholesterol, Calculated 81 mg/dl; Potassium 4.0 mmol/L (3.5-5.1); Sodium 141 mmol/L (135-145); Total Protein 6.5 g/dl (6.3-8.2); Very Low Density Lipoprotein 15 mg/dl (0-30); eGFR 42.22
[2025-02-05 13:45] LABS: TSH 2.56 uIU/ml (0.47-4.68)
[2025-02-05 14:26] LABS: Glycohemoglobin (HgbA1c) 5.6 % (4.0-5.6)
== END ==
LOC: HWLAB 09:52
PROVIDERS: ATTENDING PHYSICIAN Internal Medicine; REFERRING PHYSICIAN Internal Medicine
DX: I10 Essential (primary) hypertension (principal); E03.9 Hypothyroidism, unspecified; E78.5 Hyperlipidemia, unspecified; R53.83 Other fatigue; R73.03 Prediabetes
CPT/HCPCS: 36415; 80053; 80061; 83036; 84443; 85025

== ENCOUNTER 2025-04-14 12:50 | Emergency (ER) | payer MEDICARE, OTHER, SELFPAY ==
[2025-04-14 12:53] VITALS: BP 150/84
--- NOTE | 2025-04-14 13:44 | ED.GENMED ---
History of Present Illness
General
Chief Complaint: Nose Bleed
Source: patient and spouse
Exam Limitations: none
Time Seen by Provider: 04/14/25 13:21
History of Present Illness
History of Present Illness:
84yoM with a history of atrial fibrillation on Eliquis presenting with his for evaluation of a nosebleed. He started bleeding from his left nare this morning which resolved. He had a second episode of bleeding from the left nare and was
bleeding from the right nare after coughing during lunch time. Each episode resolved after a few minutes. He has not had any further bleeding in over an hour. spoke with his PCP who told them to go to the ED for possible cautery. No
trauma/nose picking reported. He has been blowing his nose a lot recently.
Past History
Past History
ED Past Medical History: Arrthythmia (Atrial fibrillation, sick sinus syndrome, ventricular dysrhythmia), CAD, CHF, CVA (Hemorrhagic stroke, TIA), GERD, HTN, Hypercholesterolemia and Hypothyroidism
ED Past Surgical History: Brain (craniotomy 2000), Cardiac (Dual chamber Pacemaker/AICD), Cholecystectomy (2003), Urological (cystoscopy/ureteroscopy/stone extraction/stent 1994) and Other (rectal fistula 1971, nasal repair 1956)
Patient has exhibited threatening behavior?: No
Social History
Tobacco: Non-smoker
Alcohol: None
Drug: None
Personal:
Living: with family
Employment: Retired
Family History
Family History: Other (Noncontributory)
Phy Exam
General Physical Exam
General Presentation: well appearing and no apparent distress
General age: appears stated age
General Skin: warm and dry
General Habitus: normal
General Mental: alert
ENT Exam
ENT Exam: other (No active bleeding noted from nares or posterior oropharynx. Small clot noted in L anterior nare in Kiesselbach's triangle. )
Neurological Exam
Neurological Exam: alert
Skin Exam
Skin Exam: normal color and warm/dry
Psychiatric Exam
Psychiatric Exam: normal mood/affect
Course
Vital Signs
Initial and Last Documented VS:
Initial Vital Signs
Temp Pulse Resp BP Pulse Ox
97.7 F 53 16 150/84 94
04/14/25 12:53 04/14/25 12:53 04/14/25 12:53 04/14/25 12:53 04/14/25 12:53
Last Documented Vital Signs
Temp Pulse Resp BP Pulse Ox
97.7 F 53 16 150/84 94
04/14/25 12:53 04/14/25 12:53 04/14/25 12:53 04/14/25 12:53 04/14/25 13:46
Procedures
Nosebleed
Drug treatment: none
Treatment: Silver nitrate cautery
Post treatment bleeding: none- good control
MDM/Problems Addressed
Differential Diagnosis Includes:
84yoM here after multiple nose bleeds this morning. On Eliquis for afib. No active bleeding during exam. There is a small clot noted in L anterior nare that was cauterized with silver nitrate. Patient in ED for >1 hour without any bleeding. He is
stable for discharge. Supportive care discussed. Advised f/u with ENT and ED return precautions reviewed. in agreement with plan and he was discharged in stable condition.
*Pulse Oximetry
SaO2: 94
Oxygen Mode of Delivery: Room air
Patient hypoxic: no
*Critical Care Note
Total Time (30-74mins, 75-104mins- exclusive of procedures): Not Applicable
ED Attending Note
-
Portions of this chart may have been created with voice recognition software.� Occasional wrong word or��sound alike� substitutions may have occurred due to the inherent limitations of voice recognition software.
Discharge Plan
Departure
Patient Disposition: Home (Routine Discharge)
Date of Disposition: 04/14/25
Time of Disposition: 13:48
Patient with high blood pressure during this ER visit?: Yes
Discharge Problem:
Epistaxis
Instructions: Nosebleeds (DC)
Prescriptions:
No Action
levothyroxine 75 MCG tablet
75 mcg PO DAILY
atorvastatin 40 MG tablet
40 mg PO QPM
cyanocobalamin (vitamin B-12) 1,000 MCG tablet
1,000 mcg PO DAILY
lisinopril 40 MG tablet
40 mg PO DAILY
cholecalciferol (vitamin D3) 1,000 UNITS tablet
1,000 units PO DAILY
potassium chloride 10 MEQ tablet,ER particles/crystals
20 meq PO QPM
amiodarone 200 mg Tablet
200 mg PO DAILY
furosemide 40 mg Tablet
40 mg PO QPM
Rx Instructions:
1600
furosemide 80 MG tablet
80 mg PO DAILY
Rx Instructions:
0800
acetaminophen [Tylenol] 325 mg Tablet
325 mg PO BIDPRN PRN (Reason: mild pain)
potassium chloride 10 mEq Tablet Extended Release
10 meq PO QPM
isosorbide mononitrate 60 MG tablet extended release 24 hr
60 mg PO QPM
Eliquis 2.5 mg Tablet
2.5 mg PO BID
guaifenesin 100 mg/5 mL Liquid
200 mg PO QID Qty: 0 0RF
albuterol sulfate 90 mcg/actuation Hfa Aerosol Inhaler
1 puff inhalation R Q4HPRN PRN (Reason: wheezing, SOB) Qty: 0 0RF
carvedilol 12.5 MG tablet
12.5 mg PO BID Qty: 0 0RF
Referrals:
Zia Virk MD [Active, Otology]
Activity Restrictions/Additional Instructions:
Use Bee nasal spray daily and use cool mist humidifier at nighttime. If bleeding recurs, hold direct pressure for 15 minutes.
Please follow-up with ENT. Return to the ER if bleeding does not resolve.
Interventions
Interventions:
*Risk Screen - Suicide Last Done: 04/14/25 12:53
*Neglect/Abuse Screening Last Done: 04/14/25 14:02
*Nursing Disposition Last Done: 04/14/25 14:02
ED-EENT Assessment Last Done: 04/14/25 13:08
Discharge Date and Time
Discharge Date/Time: 04/14/25 14:03
Print Language: AMHARIC
== END 2025-04-14 14:03 | disposition home or self-care (01) ==
LOC: EMR 12:50
PROVIDERS: EMERGENCY PHYSICIAN Student in an Organized Health Care Education/Training Program; FAMILY PHYSICIAN Internal Medicine
DX: R04.0 Epistaxis (principal); I25.10 Atherosclerotic heart disease of native coronary artery without angina pectoris; I48.91 Unspecified atrial fibrillation; I49.5 Sick sinus syndrome; Z95.0 Presence of cardiac pacemaker; I11.0 Hypertensive heart disease with heart failure; I50.9 Heart failure, unspecified; E78.00 Pure hypercholesterolemia, unspecified; E03.9 Hypothyroidism, unspecified; K21.9 Gastro-esophageal reflux disease without esophagitis; Z79.01 Long term (current) use of anticoagulants; Z86.73 Personal history of transient ischemic attack (TIA), and cerebral infarction without residual deficits
CPT/HCPCS: 99282; 30901

== ENCOUNTER → 2025-04-27 10:26 | Outpatient (REF) | payer MEDICARE, OTHER, SELFPAY ==
[2025-04-27 11:54] LABS: ALT (SGPT) 37 U/L (0-50); AST (SGOT) 34 U/L (17-59); Albumin 4.4 g/dl (3.5-5.0); Alkaline Phosphatase 85 U/L (38-126); Blood Urea Nitrogen 24 mg/dl (9-20); Calcium 9.0 mg/dl (8.4-10.2); Chloride 101 mmol/L (98-107); Glucose 93 mg/dl (70-99); HDL Cholesterol 46 mg/dl; LDL Cholesterol, Calculated 88 mg/dl; Potassium 3.8 mmol/L (3.5-5.1); Sodium 139 mmol/L (135-145); Total Protein 7.2 g/dl (6.3-8.2); Very Low Density Lipoprotein 14 mg/dl (0-30); eGFR 42.22
[2025-04-27 12:01] LABS: Carbon Dioxide 33 mmol/L (22-30)
[2025-04-27 12:13] LABS: Glycohemoglobin (HgbA1c) 5.6 % (4.0-5.9)
== END ==
LOC: REG 10:26
PROVIDERS: ATTENDING PHYSICIAN Internal Medicine
DX: Z00.00 Encounter for general adult medical examination without abnormal findings (principal); N18.32 Chronic kidney disease, stage 3b; E78.00 Pure hypercholesterolemia, unspecified; I25.10 Atherosclerotic heart disease of native coronary artery without angina pectoris; I10 Essential (primary) hypertension; I25.5 Ischemic cardiomyopathy; E03.9 Hypothyroidism, unspecified; G47.33 Obstructive sleep apnea (adult) (pediatric); Z79.01 Long term (current) use of anticoagulants; I48.0 Paroxysmal atrial fibrillation; E66.9 Obesity, unspecified; Z13.31 Encounter for screening for depression; Z79.899 Other long term (current) drug therapy
CPT/HCPCS: 36415; 80053; 80061; 83036; 84443